=== PATIENT | female | born 1970 | race Caucasian/White ===

== ENCOUNTER → 2020-02-23 12:29 | Outpatient (BNVA) | payer OTHER, SELFPAY | PROVIDERS: Visit Provider Internal Medicine Cardiovascular Disease | DX: I10 Essential (primary) hypertension (principal) | CPT/HCPCS: 93005 ==

== ENCOUNTER 2020-03-23 13:13 | Outpatient (REF) | payer OTHER, SELFPAY ==
--- NOTE | ~2020-03-23 | MM_ITS ---
EXAMINATION: MM DIAGNOSTIC DIGITAL BREAST TOMOSYNTHESIS, BILATERAL TARGETED RIGHT BREAST ULTRASOUND CLINICAL INFORMATION: Right breast nipple discharge. The lifetime risk of breast cancer based on the Tyrer-Cuzick Model is 8.6%. COMPARISON: Mammography: 10/07/2018 and studies dating back to 05/08/2011. TECHNIQUE: Digital breast tomosynthesis is performed in both the craniocaudal and mediolateral oblique views along with computer-aided detection (CAD). Synthesized 2D images are generated from the tomosynthesis. Left craniocaudal spot compression view also performed. Targeted right breast ultrasound. FINDINGS: There are scattered areas of fibroglandular density (ACR BI-RADS breast composition Category b). There are a few stable intramammary lymph nodes seen about the lateral aspect of the left breast. There is question of a retroareolar density about the left breast for which spot compression view demonstrated to represent superimposition of fibroglandular tissue. There is a small stable region of parenchymal distortion deep lateral aspect of the right breast. No new suspicious dominant mass or grouping of microcalcifications is appreciated. Targeted ultrasound evaluation retroareolar region of the right breast did not demonstrate any abnormal cystic or solid masses. No dilated Doppler filling defects were appreciated. No suspicious regions of distal sound shadowing seen. Results are discussed with the patient at time of visit. MM/MM tomosynthesis diagnostic BI IMPRESSION: No specific mammographic or ultrasound findings to suggest malignancy. Clinical followup suggested. ASSESSMENT: BI-RADS 1: Negative RECOMMENDATION: Routine annual mammography screening due in 12 months. Clinical followup. This patient's information was entered into a reminder system with a target due date for their next mammogram.
--- NOTE | ~2020-03-23 | US_ITS ---
EXAMINATION: US DIAGNOSTIC ULTRASOUND BREAST, RIGHT CLINICAL INFORMATION: Right nipple discharge. COMPARISON: Mammography of same day as well as studies dating back to April 18, 2010. TECHNIQUE: Ultrasound of the breast is performed with real-time peres scale imaging and color Doppler. FINDINGS: There is no focal suspicious finding. There is no solid mass, architectural abnormality, duct ectasia, or edema in the soft tissue planes. Results are discussed with the patient at time of visit. US/US breast RT limited IMPRESSION: No specific ultrasound abnormality to suggest malignancy retroareolar region of the right breast. ASSESSMENT: BI-RADS 1: Negative RECOMMENDATION: Routine annual mammography screening due in 12 months. This patient's information was entered into a reminder system with a target due date for their next mammogram.
== END 2020-03-23 13:14 | disposition home or self-care (01) ==
LOC: HO.MAMMO 13:13
PROVIDERS: PCP Internal Medicine; Visit Provider Internal Medicine
DX: N64.52 Nipple discharge (principal)
CPT/HCPCS: 76642; 77062; 77066

== ENCOUNTER → 2020-09-06 10:58 | Outpatient (BNVA) | payer OTHER, SELFPAY | PROVIDERS: PCP Internal Medicine; Referring Provider Internal Medicine; Visit Provider Internal Medicine Cardiovascular Disease | DX: R94.31 Abnormal electrocardiogram [ECG] [EKG] (principal); I10 Essential (primary) hypertension | CPT/HCPCS: 93005 ==

== ENCOUNTER 2021-01-09 07:26 | Outpatient (REF) | payer OTHER, MEDICAID, SELFPAY ==
[2021-01-09 07:35] LABS: MANUAL DIFF FLAG NO
[2021-01-09 07:58] LABS: Basophils Percent Auto 0.5 % (0-2); Eosinophils Absolute Auto 0.2 X10*3/uL (0.0-0.4); Eosinophils Percent Auto 2.9 % (0-4); Hematocrit 41.6 % (37.0-47.0); Hemoglobin 13.1 g/dl (12.0-16.0); Imm Gran Abs Auto 0.01 X10*3/uL (0.00-0.03); Imm Gran Pct Auto 0.2 % (0.0-0.4); Lymphocytes Absolute Auto 2.7 X10*3/uL (1.2-4.9); Mean Corpuscular HGB Conc 31.5 g/dl (31.0-35.0); Mean Corpuscular Hemoglobin 28.7 pg (27.0-33.0); Mean Platelet Volume 10.1 fL (9.4-12.3); Monocytes Absolute Auto 0.6 X10*3/uL (0.1-1.2); Neutrophils Absolute Auto 2.2 x10*3/uL (2.0-8.3); Neutrophils Percent Auto 38.4 % (45-73); Platelet Count 266 X10*3/uL (160-400); Red Blood Count 4.57 X10*6/uL (4.20-5.50); Red Cell Distribution Width 13.2 % (11.0-16.0); White Blood Count 5.6 X10*3/uL (4.8-10.8)
[2021-01-09 08:53] LABS: Alanine Aminotransferase 18 U/L (0-31); Albumin Level 4.3 g/dL (3.5-5.0); Alkaline Phosphatase 66 U/L (39-117); Anion Gap 11 (12-20); Aspartate Amino Transferase 13 U/L (5-31); Bilirubin Total 0.7 mg/dL (0.0-1.0); Blood Urea Nitrogen 16 mg/dL (9-16); Calcium 9.8 mg/dL (8.4-10.2); Carbon Dioxide 30 mmol/L (22-29); Chloride 105 mmol/L (96-108); Cholesterol 227 mg/dL; Estimated Glomerular Filt Rate > 60; Glucose Fasting 105 mg/dL (60-99); HDL Cholesterol 45 mg/dL; LDL Cholesterol Calculated 160 mg/dl; Potassium 3.6 mmol/L (3.3-5.1); Sodium 142 mmol/L (135-145); Total Protein 7.1 g/dL (6.5-8.0); Triglycerides 110 mg/dL
== END 2021-01-09 07:27 | disposition home or self-care (01) ==
LOC: HO.LAB 07:26
PROVIDERS: PCP Internal Medicine; Visit Provider Internal Medicine
DX: Z00.00 Encounter for general adult medical examination without abnormal findings (principal)
CPT/HCPCS: 36415; 80053; 80061; 84443; 85025

== ENCOUNTER → 2021-03-07 13:20 | Outpatient (BNVA) | payer OTHER, SELFPAY | PROVIDERS: PCP Internal Medicine; Referring Provider Internal Medicine; Visit Provider Internal Medicine Cardiovascular Disease | DX: I10 Essential (primary) hypertension (principal) | CPT/HCPCS: 99212 ==

== ENCOUNTER 2021-03-19 07:51 | Outpatient (REF) | payer OTHER, SELFPAY ==
[2021-03-19 09:10] LABS: Cholesterol 222 mg/dL; HDL Cholesterol 42 mg/dL; LDL Cholesterol Calculated 159 mg/dl; Triglycerides 108 mg/dL
== END 2021-03-19 07:52 | disposition home or self-care (01) ==
LOC: HO.LAB 07:51
PROVIDERS: PCP Internal Medicine; Visit Provider Internal Medicine Cardiovascular Disease
DX: I10 Essential (primary) hypertension (principal)
CPT/HCPCS: 36415; 80061

== ENCOUNTER 2021-03-27 11:04 | Outpatient (REF) | payer OTHER, SELFPAY ==
--- NOTE | ~2021-03-27 | MM_ITS ---
EXAMINATION: MM SCREENING DIGITAL BREAST TOMOSYNTHESIS, BILATERAL CLINICAL INFORMATION: Screening. Asymptomatic. The lifetime risk of breast cancer based on the Tyrer-Cuzick Model is 8%. COMPARISON: Mammography: 03/23/2020, 10/07/2018, 09/30/2017, 09/18/2016, 07/21/2015 TECHNIQUE: Digital breast tomosynthesis is performed in both the craniocaudal and mediolateral oblique views along with computer-aided detection (CAD). Synthesized 2D images are generated from the tomosynthesis. FINDINGS: There are scattered areas of fibroglandular density (ACR BI-RADS breast composition Category b). There are no significant masses, abnormal calcifications, or other abnormalities. Parenchymal pattern is similar to prior studies. Scattered bilateral asymmetries are stable. No developing density or interval architectural changes. No significant change from prior exams. MM/MM tomosynthesis screening BI IMPRESSION: No mammographic evidence of malignancy. ASSESSMENT: BI-RADS 2: Benign RECOMMENDATION: Routine annual mammography screening. This patient's information was entered into a reminder system with a target due date for their next mammogram.
== END 2021-03-27 11:05 | disposition home or self-care (01) ==
LOC: HO.MAMMO 11:04
PROVIDERS: PCP Internal Medicine; Visit Provider Internal Medicine
DX: Z12.31 Encounter for screening mammogram for malignant neoplasm of breast (principal)
CPT/HCPCS: 77063; 77067

== ENCOUNTER 2021-06-12 13:09 | Outpatient (REF) | payer OTHER, SELFPAY ==
[2021-06-12 14:26] LABS: Hematocrit 37.2 % (37.0-47.0); Hemoglobin 11.9 g/dl (12.0-16.0); Mean Corpuscular Hemoglobin 28.7 pg (27.0-33.0); Mean Corpuscular Volume 89.9 fL (80.0-98.0); Mean Platelet Volume 10.4 fL (9.4-12.3); Platelet Count 304 X10*3/uL (160-400); Red Blood Count 4.14 X10*6/uL (4.20-5.50); Red Cell Distribution Width 13.2 % (11.0-16.0); White Blood Count 5.4 X10*3/uL (4.8-10.8)
[2021-06-12 14:41] LABS: Iron 35 mcg/dL (30-160); Percent Iron Saturation 8 % (15-50); Total Iron Binding Capacity 440 mcg/dL (228-428); Unsaturated Iron Binding 405 ug/dL
== END 2021-06-12 13:10 | disposition home or self-care (01) ==
LOC: HO.LAB 13:09
PROVIDERS: Absent Provider Physician Assistant; PCP Internal Medicine; Visit Provider Nurse Practitioner Family
DX: I10 Essential (primary) hypertension (principal)
CPT/HCPCS: 36415; 83540; 85027

== ENCOUNTER → 2021-11-14 14:20 | Outpatient (BNVA) | payer OTHER, SELFPAY | PROVIDERS: PCP Internal Medicine; Referring Provider Internal Medicine; Visit Provider Internal Medicine Cardiovascular Disease | DX: I10 Essential (primary) hypertension (principal) | CPT/HCPCS: 93005; 99212 ==

== ENCOUNTER 2022-01-14 08:25 | Outpatient (REF) | payer OTHER, SELFPAY ==
[2022-01-14 08:47] LABS: MANUAL DIFF FLAG NO
[2022-01-14 09:58] LABS: Basophils Percent Auto 0.5 % (0-2); Eosinophils Absolute Auto 0.1 X10*3/uL (0.0-0.4); Eosinophils Percent Auto 2.2 % (0-4); Hematocrit 40.5 % (37.0-47.0); Hemoglobin 12.6 g/dl (12.0-16.0); Imm Gran Abs Auto 0.01 X10*3/uL (0.00-0.03); Imm Gran Pct Auto 0.2 % (0.0-0.4); Lymphocytes Absolute Auto 2.1 X10*3/uL (1.2-4.9); Lymphocytes Percent Auto 34.1 % (20-40); Mean Corpuscular HGB Conc 31.1 g/dl (31.0-35.0); Mean Corpuscular Hemoglobin 27.6 pg (27.0-33.0); Mean Corpuscular Volume 88.6 fL (80.0-98.0); Mean Platelet Volume 10.5 fL (9.4-12.3); Monocytes Absolute Auto 0.5 X10*3/uL (0.1-1.2); Neutrophils Absolute Auto 3.3 x10*3/uL (2.0-8.3); Platelet Count 276 X10*3/uL (160-400); Red Blood Count 4.57 X10*6/uL (4.20-5.50); Red Cell Distribution Width 13.2 % (11.0-16.0)
[2022-01-14 10:55] LABS: Alanine Aminotransferase 15 U/L (0-31); Albumin Level 4.1 g/dL (3.5-5.0); Alkaline Phosphatase 70 U/L (39-117); Anion Gap 11 (12-20); Aspartate Amino Transferase 12 U/L (5-31); Bilirubin Total 0.3 mg/dL (0.0-1.0); Blood Urea Nitrogen 11 mg/dL (9-16); Calcium 9.2 mg/dL (8.4-10.2); Carbon Dioxide 28 mmol/L (22-29); Chloride 106 mmol/L (96-108); Cholesterol 206 mg/dL; Estimated Glomerular Filt Rate > 60; Glucose Fasting 98 mg/dL (60-99); HDL Cholesterol 49 mg/dL; Iron 33 mcg/dL (30-160); LDL Cholesterol Calculated 142 mg/dl; Percent Iron Saturation 9 % (15-50); Potassium 3.9 mmol/L (3.3-5.1); Sodium 141 mmol/L (135-145); Thyroid Stimulating Hormone 2.71 uIU/mL (0.32-4.0); Total Iron Binding Capacity 357 mcg/dL (228-428); Total Protein 6.7 g/dL (6.5-8.0); Triglycerides 76 mg/dL; Unsaturated Iron Binding 324 ug/dL
== END 2022-01-14 08:26 | disposition home or self-care (01) ==
LOC: HO.LAB 08:25
PROVIDERS: PCP Internal Medicine; Visit Provider Internal Medicine
DX: Z13.0 Encounter for screening for diseases of the blood and blood-forming organs and certain disorders involving the immune mechanism (principal); E78.5 Hyperlipidemia, unspecified; E03.9 Hypothyroidism, unspecified; I10 Essential (primary) hypertension; E61.1 Iron deficiency
CPT/HCPCS: 36415; 80053; 80061; 83540; 84443; 85025

== ENCOUNTER 2022-03-28 13:57 | Outpatient (REF) | payer OTHER, SELFPAY ==
--- NOTE | ~2022-03-28 | MM_ITS ---
EXAMINATION: MM SCREENING DIGITAL BREAST TOMOSYNTHESIS, BILATERAL CLINICAL INFORMATION: Screening. Asymptomatic. The lifetime risk of breast cancer based on the Tyrer-Cuzick Model is 8%. COMPARISON: Mammography: 03/27/2021, 03/23/2020, 10/07/2018, 09/30/2017 TECHNIQUE: Digital breast tomosynthesis is performed in both the craniocaudal and mediolateral oblique views along with computer-aided detection (CAD). Synthesized 2D images are generated from the tomosynthesis. FINDINGS: There are scattered areas of fibroglandular density (ACR BI-RADS breast composition Category b). There are no significant masses, abnormal calcifications, or other abnormalities. There are minor parenchymal asymmetries similar to prior studies. No developing density or architectural abnormality or significant changes. The axilla and skin contours are unremarkable. MM/MM tomosynthesis screening BI IMPRESSION: No mammographic evidence of malignancy. ASSESSMENT: BI-RADS 2: Benign RECOMMENDATION: Routine annual mammography screening. This patient's information was entered into a reminder system with a target due date for their next mammogram.
== END 2022-03-28 13:58 | disposition home or self-care (01) ==
LOC: HO.MAMMO 13:57
PROVIDERS: PCP Internal Medicine; Visit Provider Internal Medicine
DX: Z12.31 Encounter for screening mammogram for malignant neoplasm of breast (principal)
CPT/HCPCS: 77063; 77067

== ENCOUNTER → 2022-04-25 14:56 | Outpatient (BNVA) | payer OTHER, SELFPAY | PROVIDERS: PCP Internal Medicine; Referring Provider Internal Medicine; Visit Provider Nurse Practitioner Family | DX: R94.31 Abnormal electrocardiogram [ECG] [EKG] (principal); I10 Essential (primary) hypertension | CPT/HCPCS: 93005; 99212 ==

== ENCOUNTER 2022-06-12 10:28 | Outpatient (REF) | payer OTHER, SELFPAY ==
[2022-06-12 10:47] LABS: MANUAL DIFF FLAG NO
[2022-06-12 10:58] LABS: Basophils Percent Auto 0.7 % (0-2); Eosinophils Absolute Auto 0.1 X10*3/uL (0.0-0.4); Eosinophils Percent Auto 2.3 % (0-4); Hemoglobin 8.7 g/dl (12.0-16.0); Imm Gran Abs Auto 0.03 X10*3/uL (0.00-0.03); Imm Gran Pct Auto 0.5 % (0.0-0.4); Lymphocytes Absolute Auto 2.3 X10*3/uL (1.2-4.9); Lymphocytes Percent Auto 37.3 % (20-40); Mean Corpuscular HGB Conc 31.1 g/dl (31.0-35.0); Mean Corpuscular Hemoglobin 28.2 pg (27.0-33.0); Mean Corpuscular Volume 90.6 fL (80.0-98.0); Monocytes Absolute Auto 0.5 X10*3/uL (0.1-1.2); Neutrophils Absolute Auto 3.1 x10*3/uL (2.0-8.3); Neutrophils Percent Auto 51.2 % (45-73); Platelet Count 318 X10*3/uL (160-400); Red Blood Count 3.09 X10*6/uL (4.20-5.50); Red Cell Distribution Width 15.3 % (11.0-16.0); White Blood Count 6.1 X10*3/uL (4.8-10.8)
[2022-06-12 11:58] LABS: Alanine Aminotransferase 18 U/L (0-31); Albumin Level 3.9 g/dL (3.5-5.0); Alkaline Phosphatase 63 U/L (39-117); Anion Gap 12 (12-20); Aspartate Amino Transferase 13 U/L (5-31); Bilirubin Total 0.5 mg/dL (0.0-1.0); Blood Urea Nitrogen 15 mg/dL (9-16); Calcium 9.1 mg/dL (8.4-10.2); Carbon Dioxide 24 mmol/L (22-29); Chloride 108 mmol/L (96-108); Cholesterol 209 mg/dL; Estimated Glomerular Filt Rate > 60; Glucose Fasting 99 mg/dL (60-99); HDL Cholesterol 46 mg/dL; LDL Cholesterol Calculated 146 mg/dl; Potassium 4.1 mmol/L (3.3-5.1); Sodium 140 mmol/L (135-145); Total Protein 6.2 g/dL (6.5-8.0); Triglycerides 89 mg/dL
[2022-06-12 12:24] LABS: Ferritin 10 ng/mL (10-250)
== END 2022-06-12 10:29 | disposition home or self-care (01) ==
LOC: HO.LAB 10:28
PROVIDERS: PCP Internal Medicine; Visit Provider Internal Medicine
DX: D64.9 Anemia, unspecified (principal); E78.5 Hyperlipidemia, unspecified; N28.9 Disorder of kidney and ureter, unspecified
CPT/HCPCS: 36415; 80053; 80061; 82728; 85025

== ENCOUNTER 2022-06-13 14:00 | Outpatient (REF) | payer OTHER, SELFPAY ==
[2022-06-13 15:38] LABS: Iron 289 mcg/dL (30-160); Percent Iron Saturation 66 % (15-50); Total Iron Binding Capacity 441 mcg/dL (228-428); Unsaturated Iron Binding 152 ug/dL
== END 2022-06-13 14:01 | disposition home or self-care (01) ==
LOC: HO.LAB 14:00
PROVIDERS: PCP Internal Medicine; Visit Provider Internal Medicine
DX: E61.1 Iron deficiency (principal)
CPT/HCPCS: 36415; 83540

== ENCOUNTER 2022-06-17 15:55 | Outpatient (REF) | payer OTHER, SELFPAY ==
[2022-06-17 19:04] LABS: Folate 16.7 ng/mL (> or = 4.0); Vitamin B12 465 pg/mL (200-900)
== END 2022-06-17 15:56 | disposition home or self-care (01) ==
LOC: HO.LAB 15:55
PROVIDERS: PCP Internal Medicine; Visit Provider Internal Medicine
DX: D64.9 Anemia, unspecified (principal)
CPT/HCPCS: 36415; 82607; 82746

== ENCOUNTER 2022-10-21 11:20 | Outpatient (AMB) | payer OTHER, SELFPAY ==
--- NOTE | 2022-10-21 11:33 | A.OFFVIS_ITS ---
Intake Vital Signs 10/21/22 11:34 Height 5 ft 2 in Weight 140 lb 10.479 oz BMI 25.7 BP 126/74 Blood Pressure Location Lt brachial Position Sitting Pulse 94 Pulse Source Pulse Oximeter Intake Visit Reasons: 6 mth f/up Intake Note: 6 month follow up. 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 She has anterolateral T-wave inversions on EKG which have been persistent without any dynamic changes. Blood pressure in the office previously was high. I started on hydrochlorothiazide and did an echocardiogram. With anterolateral T-wave inversions, I sent her for an echocardiogram which was completely normal. With hydrochlorothiazide her blood pressure has improved significantly. She is denying any symptoms including no chest discomfort shortness of breath. Taking medications regularly. She returns for follow-up today. She was tested positive for COVID-19 along with her mother. She had dizziness and noticed her blood pressure to be low 100 at that stage card office. We advised her to stop the hydrochlorothiazide. Off thiazide diuretics her blood pressure has been running in 120s to 130s. She is saying that when she wakes up her blood pressure is low at 110 and her sister told her to take excess salt in her diet and she has been eating saltine. No chest pain or shortness of breath and overall doing well. 10/21/22: She returns for follow-up. Hiro alexander was diagnosed with iron deficiency anemia due to menorrhagia. She is perimenopausal at this stage. She said she was due to get iron infusions but by increasing iron and diet she was able to i mprove her iron levels and hemoglobin. She is currently just taking ferrous sulfate orally. She says she was quite fatigued when she was anemic but since her hemoglobin improved she has been feeling better. [facility] Medical History HTN (hypertension) Surgical History No pertinent past surgical history Family History Father Renal failure CVD (cardiovascular disease) Mother Alzheimers disease Social History Housing: House Alcohol intake: never Patient Tobacco Use Status: Never used Tobacco e-Cigarette/Vaping Use: Never Used Second Hand Smoke Exposure: No service: No Current occupational status: unemployed Cognitive needs: No Hearing needs: No Vision needs: No Review of Systems Const Denies weakness ENT Denies dizziness Card Denies chest pain, Denies chest pain with activity, Denies syncope, Denies rapid heart rate, Denies pedal edema, Denies edema, Denies leg edema, Denies lightheadedness, Denies palpitations, Denies dyspnea, Denies dyspnea on exertion and Denies orthopnea Resp Denies cough, Denies dyspnea and Denies dyspnea on exertion GI Denies hematochezia and Denies change in stool character Musc Denies abnormal gait, Denies muscle cramps, Denies muscle weakness, Denies numbness, Denies radiating pain into limb and Denies tingling Neuro Denies abnormal gait, Denies dizziness, Denies syncope, Denies numbness, Denies tingling and Denies weakness Endo Denies palpitations Physical Exam Vital Signs: Last Vital Signs Pulse 94 10/21/22 11:34 BP 126/74 10/21/22 11:34 BMI result Body Mass Index 25.7 GENERAL APPEARANCE: in no acute distress, well developed, well nourished. NECK/THYROID: no carotid bruit, no jugular venous distention. SKIN: no suspicious lesions, warm and dry. HEART: no murmurs, regular rate and rhythm, S1, S2 normal. LUNGS: clear to auscultation bilaterally. ABDOMEN: normal, bowel sounds present, soft, nontender, nondistended. EXTREMITIES: no clubbing, cyanosis, or edema. PERIPHERAL PULSES: equal. NEUROLOGIC: nonfocal, alert and oriented. PSYCH: mood/affect full range. Assessment & Plan Assessment & Plan (1) HTN (hypertension): Code(s): I10 - Essential (primary) hypertension (2) Abnormal ECG: Code(s): R94.31 - Abnormal electrocardiogram [ECG] [EKG] Plan [age] year female who is here for follow-up. She is currently of medications and blood pressure appears to be normal. This should be closely monitored and if her readings are above 130/80 she should be restarted on antihypertensive therapy. She had symptoms due to anemia due to menorrhagia. With iron supplements she has improved her hemoglobin and at this stage is doing well. She will be followed by Hematology closely. She will see us back in 1 year. Thank you for allowing me to participate in the care of your patient. Please feel free to contact me if you have any questions. Coding Level of Care Code Est Pt Level 3 (93166) Diagnoses HTN (hypertension) I10 Abnormal ECG R94.31
[2022-10-21 11:34] VITALS: BP 126/74; PULSE 94; BMI 25.7
== END 2022-10-21 11:56 | disposition home or self-care (01) ==
PROVIDERS: PCP Internal Medicine; Referring Provider Internal Medicine; Visit Provider Internal Medicine Cardiovascular Disease
DX: I10 Essential (primary) hypertension (principal); R94.31 Abnormal electrocardiogram [ECG] [EKG]
CPT/HCPCS: 99213

== ENCOUNTER → 2022-10-21 11:20 | Outpatient (BNVA) | payer OTHER, SELFPAY | PROVIDERS: PCP Internal Medicine; Referring Provider Internal Medicine; Visit Provider Internal Medicine Cardiovascular Disease | DX: I10 Essential (primary) hypertension (principal); R94.31 Abnormal electrocardiogram [ECG] [EKG] | CPT/HCPCS: 99212 ==

== ENCOUNTER 2023-01-14 12:45 | Outpatient (AMB) | payer OTHER, SELFPAY ==
[2023-01-14 12:48] VITALS: BP 138/98; PULSE 95; O2SAT 98; BMI 26.3
--- NOTE | 2023-01-14 12:48 | MHC.PC.OV ---
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 Required per policy Accompanied by: Self / Same As Patient Allergies No Known Allergies Allergy (Verified 01/14/23 12:48) Medication List - Last Reconciled 01/14/23 by Efraín Matthews MD cholecalciferol (vitamin D3) 25 mcg PO DAILY ferrous sulfate 325 mg PO DAILY Tobacco use date assessed: 01/14/23 Dental Screening Dental Screen Date: 01/14/23 Did you have a dental visit in the last 12 months?: Yes Did you have a dental problem in the last 6 months where you did not have access to dental care?: No Was dental information given to patient?: Patient has dentist HPI Annual Exam/ needs PHQ9+ THRIVE HPI Details iron def anemia; declines colon cancer screening [facility] Medical History HTN (hypertension) Surgical History No pertinent past surgical history Family History Father Renal failure CVD (cardiovascular disease) Mother Alzheimers disease Social History Housing: House Alcohol intake: never Patient Tobacco Use Status: Never used Tobacco e-Cigarette/Vaping Use: Never Used Second Hand Smoke Exposure: No service: No Current occupational status: unemployed Cognitive needs: No Hearing needs: No Vision needs: No Questionnaire PHQ-9 Over the last 2 weeks, how often have you been bothered by any of the following problems? 1. Little interest or pleasure in doing things: not at all 2. Feeling down, depressed, or hopeless: not at all 3. Trouble falling or staying asleep, or sleeping too much: not at all 4. Feeling tired or having little energy: not at all 5. Poor appetite or overeating: not at all 6. Feeling bad about yourself - or that you are a failure or have let yourself or your family down: not at all 7. Trouble concentrating on things, such as reading the newspaper or watching television: not at all 8. Moving or speaking so slowly that other people could have noticed. Or the opposite - being so fidgety or restless that you have been moving around a lot more than usual: not at all 9. Thoughts that you would be better off or of hurting yourself in some way: not at all Total score: 0 Depression Screening Interpretation: Negative Depression Screening Done: Yes 89738 - PHQ-9 Billing: Yes Source: Developed by Drs. Florian Ocampo, Selina Regalado, Angel Crabtree and colleagues, with an educational riley from [employer]. Thrive Questionnaire Date Thrive assessed: 01/14/23 I am a: Patient What is your living situation today?: I have a steady place to live Within the past 12 months, did the food you bought not last and you didn't have the money to get more?: Never true Within the past 12 months, did you worry whether your food would run out before you got money to buy more?: Never true Do you have trouble paying for medicines?: No Do you have trouble getting transportation to medical appointments?: No Do you have trouble paying your heating and electricity bill?: No Do you have trouble taking care of your child, family member or friend?: No Do you have trouble with day-to-day activities such as bathing, preparing meals, shopping, managing finances, etc.?: No Are you currently unemployed and looking for a job?: No Are you interested in more education?: No Please select the resources that you would like help with: None AUDIT C Alcohol Use Questionnaire (AUDIT-C) 1. How often do you have a drink containing alcohol?: Never Total Score: 0 CLINT-7 AMB Questionnaire CLINT-7 Date CLINT - 7 assessed: 01/14/23 Feeling nervous, anxious, or on edge: 0 = Not at all Not being able to stop or control worryin = Not at all Worrying too much about different things: 0 = Not at all Trouble relaxin = Not at all Being so restless that it is hard to sit still: 0 = Not at all Becoming easily annoyed or irritable: 0 = Not at all Feeling afraid as if something awful might happen: 0 = Not at all Total CLINT-7 score (0-4 normal; 5-9 mild; 10-14 moderate; 15-21 severe): 0 Source: Developed by Drs. Florian Ocampo, Selina Regalado, Angel Crabtree and colleagues, with an educational riley from [employer]. CLINT-7 Assessment Billing CLINT-7 Assessment Tool: CLINT-7 Assessment 21438 Review of Systems Const Denies chills, Denies fatigue, Denies headache(s) and Denies weight loss Eyes Denies change in vision, Denies diplopia and Denies eye pain ENT Denies vertigo, Denies dizziness, Denies headache(s) and Denies nasal discharge Card Denies chest pain, Denies rapid heart rate and Denies dyspnea on exertion Resp Denies chest congestion, Denies cough, Denies pain with cough and Denies dyspnea on exertion GI Denies abdominal pain, Denies hematochezia and Denies change in bowel habits Musc Denies myalgias, Denies arthralgias and Denies joint swelling Skin/Breast Denies lesions and Denies unusual bruising Neuro Denies vertigo, Denies dizziness, Denies headache(s) and Denies focal weakness Endo Denies fatigue Physical exam (Primary Care) Vital Signs: Last Vital Signs Pulse 95 01/14/23 12:48 BP 138/98 H 01/14/23 12:48 Pulse Ox 98 01/14/23 12:48 Oxygen Delivery Method Room Air 01/14/23 12:48 BMI result Body Mass Index 26.3 Tobacco/Smoking Status: Tobacco use Status Tobacco use date assessed 01/14/23 01/14/23 12:49 Patient Tobacco Use Status Never used Tobacco 01/14/23 12:49 e-Cigarette/Vaping Use Never Used 01/14/23 12:49 PHQ-9: PHQ-9 Score PHQ-9: Total score 0 01/14/23 12:49 Depression Screening Interpretation: Negative Thrive Assessment: Date of Thrive Assessment Date Thrive assessed 01/14/23 01/14/23 12:49 Const General: cooperative, healthy appearing and no acute distress Orientation/consciousness: oriented to person, oriented to place and oriented to time HENMT Head: Yes normal to inspection, Yes normocephalic and Yes atraumatic Mouth: Normal oral and palatal mucosa present and tongue normal Throat: Yes posterior oropharynx normal and Yes uvula midline Eyes General: appearance normal, both eyes and all related structures Neck Neck: Yes normal visual inspection, Yes full ROM and Yes no lymphadenopathy Thyroid: Thyroid normal Carotids: normal carotid upstroke Chest Chest palpation & inspection: normal inspection of the chest Resp Effort & Inspection: normal respiratory effort and able to speak in complete sentences Auscultation: clear to auscultation bilaterally Cardio Jugular venous distension: no JVD Palpation: normal PMI Rate: regular rate Rhythm: regular rhythm Heart sounds: S1 normal heart sound present and S2 normal heart sound present GI Inspection: Yes normal to inspection Palpation (GI): Soft to palpation and No hepatosplenomegaly present Auscultation: normal bowel sounds General: Yes no CVA tenderness Back/Spine/Pelvis Back: no CVA tenderness Skin General skin exam: no rashes or lesions noted Neuro General: oriented to person, oriented to place and oriented to time Extrem General: Yes normal to inspection and Yes full ROM Assessment and Plan Assessment & Plan (1) Physical exam: Code(s): Z00.00 - Encounter for general adult medical examination without abnormal findings Plan: do labs (2) Iron deficiency: Code(s): E61.1 - Iron deficiency Plan: check labs Orders: Orders Lipid Panel Today E78.5 - Hyperlipidemia, unspecified Thyroid Stimulating Hormone Today E03.9 - Hypothyroidism, unspecified Complete Blood Count Auto Diff Today D64.9 - Anemia, unspecified Comprehensive [place]. Panel Fast Today N28.9 - Disorder of kidney and ureter, unspecified IRON PROFILE Today E61.1 - Iron deficiency Coding Level of Care Code Est Pt Prev Care 40-64y(70090) Diagnoses Physical exam Z00.00 Iron deficiency E61.1 Additional Codes CLINT-7 Assessment Billing - CLINT-7 Assessment Tool: CLINT-7 Assessment 10540 ([id number])
== END 2023-01-14 13:17 | disposition home or self-care (01) ==
PROVIDERS: Visit Provider Internal Medicine
DX: Z00.00 Encounter for general adult medical examination without abnormal findings (principal); E61.1 Iron deficiency
CPT/HCPCS: 99396

== ENCOUNTER 2023-01-15 08:32 | Outpatient (REF) | payer OTHER, SELFPAY ==
[2023-01-15 08:56] LABS: MANUAL DIFF FLAG NO
[2023-01-15 09:51] LABS: Basophils Percent Auto 0.3 % (0-2); Eosinophils Absolute Auto 0.1 X10*3/uL (0.0-0.4); Eosinophils Percent Auto 1.1 % (0-4); Hematocrit 44.1 % (37.0-47.0); Imm Gran Abs Auto 0.05 X10*3/uL (0.00-0.03); Imm Gran Pct Auto 0.5 % (0.0-0.4); Lymphocytes Percent Auto 19.3 % (20-40); Mean Corpuscular HGB Conc 31.7 g/dl (31.0-35.0); Mean Corpuscular Hemoglobin 27.9 pg (27.0-33.0); Mean Corpuscular Volume 87.8 fL (80.0-98.0); Mean Platelet Volume 10.3 fL (9.4-12.3); Monocytes Absolute Auto 0.7 X10*3/uL (0.1-1.2); Monocytes Percent Auto 6.4 % (2-11); Neutrophils Absolute Auto 7.5 x10*3/uL (2.0-8.3); Neutrophils Percent Auto 72.4 % (45-73); Platelet Count 303 X10*3/uL (160-400); Red Blood Count 5.02 X10*6/uL (4.20-5.50); Red Cell Distribution Width 13.3 % (11.0-16.0); White Blood Count 10.4 X10*3/uL (4.8-10.8)
[2023-01-15 10:41] LABS: Alanine Aminotransferase 26 U/L (0-31); Albumin Level 4.4 g/dL (3.5-5.0); Alkaline Phosphatase 97 U/L (39-117); Anion Gap 13 (12-20); Aspartate Amino Transferase 16 U/L (5-31); Bilirubin Total 0.4 mg/dL (0.0-1.0); Blood Urea Nitrogen 11 mg/dL (9-16); Carbon Dioxide 28 mmol/L (22-29); Chloride 106 mmol/L (96-108); Cholesterol 234 mg/dL (<200); Estimated Glomerular Filt Rate > 60; Glucose Fasting 109 mg/dL (60-99); HDL Cholesterol 47 mg/dL (>40); Iron 48 mcg/dL (30-160); LDL Cholesterol Calculated 158 mg/dL (<100); Percent Iron Saturation 13 % (15-50); Potassium 3.7 mmol/L (3.3-5.1); Sodium 143 mmol/L (135-145); Total Iron Binding Capacity 358 mcg/dL (228-428); Total Protein 7.7 g/dL (6.5-8.0); Triglycerides 147 mg/dL (<150); Unsaturated Iron Binding 310 ug/dL
[2023-01-15 10:58] LABS: Thyroid Stimulating Hormone 2.33 uIU/mL (0.32-4.0)
== END 2023-01-15 08:33 | disposition home or self-care (01) ==
LOC: HO.LAB 08:32
PROVIDERS: PCP Internal Medicine; Visit Provider Internal Medicine
DX: E78.5 Hyperlipidemia, unspecified (principal); E03.9 Hypothyroidism, unspecified; D64.9 Anemia, unspecified; E61.1 Iron deficiency; N28.9 Disorder of kidney and ureter, unspecified
CPT/HCPCS: 36415; 80053; 80061; 83540; 84443; 85025

== ENCOUNTER 2023-04-03 09:59 | Outpatient (REF) | payer OTHER, SELFPAY | END 2023-04-03 10:00 | disposition home or self-care (01) | LOC: HO.MAMMO 09:59 | PROVIDERS: PCP Internal Medicine; Visit Provider Internal Medicine | DX: Z12.31 Encounter for screening mammogram for malignant neoplasm of breast (principal) | CPT/HCPCS: 77063; 77067 ==

== ENCOUNTER → 2023-04-03 10:15 | Outpatient (BNV) | payer OTHER, SELFPAY | PROVIDERS: PCP Internal Medicine; Visit Provider Radiology Diagnostic Radiology | DX: Z12.31 Encounter for screening mammogram for malignant neoplasm of breast (principal) | CPT/HCPCS: 77063; 77067 ==

== ENCOUNTER 2023-04-25 13:26 | Outpatient (AMB) | payer OTHER, SELFPAY ==
[2023-04-25 13:31] VITALS: BP 160/90; PULSE 92; O2SAT 98; BMI 26.3
--- NOTE | 2023-04-25 13:31 | MHC.PC.OV ---
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 Required: No Supervisor Cell Efficiency: Not Required per policy Accompanied by: Self / Same As Patient Allergies No Known Allergies Allergy (Verified 04/25/23 13:32) Tobacco use date assessed: 04/25/23 Dental Screening Dental Screen Date: 04/25/23 Did you have a dental visit in the last 12 months?: Yes Did you have a dental problem in the last 6 months where you did not have access to dental care?: No Was dental information given to patient?: Patient has dentist HPI Itchy Rash/Hive on arms/back of leg/breast HPI Details rash on arms consistent with urticaria PFSH Medical History HTN (hypertension) Surgical History No pertinent past surgical history Family History (Updated 04/25/23 @ 13:32 by HENRRY Green) Father Renal failure CVD (cardiovascular disease) Mother Alzheimers disease Social History Housing: House Alcohol intake: never Patient Tobacco Use Status: Never used Tobacco e-Cigarette/Vaping Use: Never Used Second Hand Smoke Exposure: No service: No Current occupational status: unemployed Cognitive needs: No Hearing needs: No Vision needs: No Questionnaire PHQ-9 Over the last 2 weeks, how often have you been bothered by any of the following problems? 1. Little interest or pleasure in doing things: not at all 2. Feeling down, depressed, or hopeless: not at all 3. Trouble falling or staying asleep, or sleeping too much: not at all 4. Feeling tired or having little energy: not at all 5. Poor appetite or overeating: not at all 6. Feeling bad about yourself - or that you are a failure or have let yourself or your family down: not at all 7. Trouble concentrating on things, such as reading the newspaper or watching television: not at all 8. Moving or speaking so slowly that other people could have noticed. Or the opposite - being so fidgety or restless that you have been moving around a lot more than usual: not at all 9. Thoughts that you would be better off or of hurting yourself in some way: not at all Total score: 0 Depression Screening Interpretation: Negative Depression Screening Done: Yes 24013 - PHQ-9 Billing: Yes Source: Developed by Drs. Florian Ocampo, Selina Regalado, Angel Crabtree and colleagues, with an educational riley from [employer]. Thrive Questionnaire Date Thrive assessed: 04/25/23 I am a: Patient What is your living situation today?: I have a steady place to live Within the past 12 months, did the food you bought not last and you didn't have the money to get more?: Never true Within the past 12 months, did you worry whether your food would run out before you got money to buy more?: Never true Do you have trouble paying for medicines?: No Do you have trouble getting transportation to medical appointments?: No Do you have trouble paying your heating and electricity bill?: No Do you have trouble taking care of your child, family member or friend?: No Do you have trouble with day-to-day activities such as bathing, preparing meals, shopping, managing finances, etc.?: No Are you currently unemployed and looking for a job?: No Are you interested in more education?: No Please select the resources that you would like help with: None Currently or been in a relationship where the following occur: no concerns reported THRIVE Score: 0 AUDIT C Alcohol Use Questionnaire (AUDIT-C) 1. How often do you have a drink containing alcohol?: Never Total Score: 0 CLINT-7 AMB Questionnaire CLINT-7 Date CLINT - 7 assessed: 04/25/23 Feeling nervous, anxious, or on edge: 0 = Not at all Not being able to stop or control worryin = Not at all Worrying too much about different things: 0 = Not at all Trouble relaxin = Not at all Being so restless that it is hard to sit still: 0 = Not at all Becoming easily annoyed or irritable: 0 = Not at all Feeling afraid as if something awful might happen: 0 = Not at all Total CLINT-7 score (0-4 normal; 5-9 mild; 10-14 moderate; 15-21 severe): 0 Source: Developed by Drs. Florian Ocampo, Selina Regalado, Angel Crabtree and colleagues, with an educational riley from [employer]. Review of Systems Const Denies chills, Denies headache(s) and Denies weight loss ENT Denies headache(s) Card Denies chest pain, Denies syncope, Denies irregular heart rhythm and Denies dyspnea Resp Denies chest congestion, Denies cough and Denies dyspnea GI Denies abdominal pain, Denies change in stool character, Denies nausea and Denies vomiting Musc Denies deformity and Denies joint swelling Neuro Denies syncope and Denies headache(s) Physical exam (Primary Care) Vital Signs: Last Vital Signs Pulse 92 04/25/23 13:31 BP 160/90 H 04/25/23 13:31 Pulse Ox 98 04/25/23 13:31 Oxygen Delivery Method Room Air 04/25/23 13:31 BMI result Body Mass Index 26.3 Tobacco/Smoking Status: Tobacco use Status Tobacco use date assessed 04/25/23 04/25/23 13:32 Patient Tobacco Use Status Never used Tobacco 04/25/23 13:31 e-Cigarette/Vaping Use Never Used 04/25/23 13:31 PHQ-9: PHQ-9 Score PHQ-9: Total score 0 04/25/23 13:39 Depression Screening Interpretation: Negative Thrive Assessment: Date of Thrive Assessment Date Thrive assessed 04/25/23 04/25/23 13:32 Currently or been in a relationship where the following occur: no concerns reported Const General: cooperative, comfortable, no acute distress and alert Neck Neck: Yes no lymphadenopathy Thyroid: Thyroid normal Resp Effort & Inspection: normal respiratory effort Auscultation: clear to auscultation bilaterally Percussion: percussion normal Cardio Jugular venous distension: no JVD Palpation: normal PMI Rate: regular rate Rhythm: regular rhythm Heart sounds: S1 normal heart sound present and S2 normal heart sound present GI Inspection: Yes normal to inspection Palpation (GI): No hepatosplenomegaly present Skin Other: urticaria on arm Extrem General: Yes no clubbing, cyanosis or edema Assessment and Plan Assessment & Plan (1) Urticaria: Code(s): L50.9 - Urticaria, unspecified Plan: rx sent Medications: New methylprednisolone (Medrol (Yung)) PO PER PKG DIR 21 ea 0RF Coding Level of Care Code Est Pt Level 3 (52615) Diagnoses Urticaria L50.9
== END 2023-04-25 13:47 | disposition home or self-care (01) ==
PROVIDERS: PCP Internal Medicine; Visit Provider Internal Medicine
DX: L50.9 Urticaria, unspecified (principal)
CPT/HCPCS: 99213

== ENCOUNTER 2023-04-28 10:30 | Outpatient (AMB) | payer OTHER, SELFPAY ==
[2023-04-28 10:48] VITALS: BP 180/100; PULSE 79; BMI 26.0
--- NOTE | 2023-04-28 10:48 | A.OFFPC_ITS ---
Vital Signs 04/28/23 10:48 Height 5 ft 2 in Weight 142 lb BMI 26.0 BP 180/100 H Blood Pressure Location Lt brachial Position Sitting Pulse 79 Pulse Source Pulse Oximeter Oxygen Delivery Method Room Air Intake Visit Reasons: Hive F/U Allergies No Known Allergies Allergy (Verified 04/25/23 13:32) Tobacco use date assessed: 04/25/23 HPI Hive F/U HPI Details improving but hives still pruritic PFSH Medical History HTN (hypertension) Surgical History No pertinent past surgical history Family History (Updated 04/25/23 @ 13:32 by HENRRY Green) Father Renal failure CVD (cardiovascular disease) Mother Alzheimers disease Social History Housing: House Alcohol intake: never Patient Tobacco Use Status: Never used Tobacco e-Cigarette/Vaping Use: Never Used Second Hand Smoke Exposure: No service: No Current occupational status: unemployed Cognitive needs: No Hearing needs: No Vision needs: No Questionnaire Thrive Questionnaire Date Thrive assessed: 04/25/23 CLINT-7 AMB Questionnaire CLINT-7 Date CLINT - 7 assessed: 04/25/23 Source: Developed by Drs. Florian Ocampo, Selina Regalado, Angel Crabtree and colleagues, with an educational riley from [employer] Review of Systems Const Denies chills, Denies headache(s) and Denies weight loss ENT Denies headache(s) Card Denies chest pain, Denies syncope, Denies irregular heart rhythm and Denies dyspnea Resp Denies chest congestion, Denies cough and Denies dyspnea GI Denies abdominal pain, Denies change in stool character, Denies nausea and Denies vomiting Musc Denies deformity and Denies joint swelling Neuro Denies syncope and Denies headache(s) Physical exam (Primary Care) Vital Signs: Last Vital Signs Pulse 79 04/28/23 10:48 BP 180/100 H 04/28/23 10:48 Oxygen Delivery Method Room Air 04/28/23 10:48 BMI result Body Mass Index 26.0 Tobacco/Smoking Status: Tobacco use Status Tobacco use date assessed 04/25/23 04/28/23 10:52 Patient Tobacco Use Status Never used Tobacco 04/28/23 10:52 e-Cigarette/Vaping Use Never Used 04/28/23 10:52 Thrive Assessment: Date of Thrive Assessment Date Thrive assessed 04/25/23 04/28/23 10:52 Const General: cooperative, comfortable, no acute distress and alert Neck Neck: Yes no lymphadenopathy Thyroid: Thyroid normal Resp Effort & Inspection: normal respiratory effort Auscultation: clear to auscultation bilaterally Percussion: percussion normal Cardio Jugular venous distension: no JVD Palpation: normal PMI Rate: regular rate Rhythm: regular rhythm Heart sounds: S1 normal heart sound present and S2 normal heart sound present GI Inspection: Yes normal to inspection Palpation (GI): No hepatosplenomegaly present Skin General skin exam: no rashes or lesions noted Extrem General: Yes no clubbing, cyanosis or edema Assessment and Plan Assessment & Plan (1) Urticaria: Code(s): L50.9 - Urticaria, unspecified Plan: rx sent Medications: New hydroxyzine pamoate 25 mg PO QID PRN 60 caps 3RF itching Coding Level of Care Code Est Pt Level 3 (76048) Diagnoses Urticaria L50.9
== END 2023-04-28 11:10 | disposition home or self-care (01) ==
PROVIDERS: PCP Internal Medicine; Visit Provider Internal Medicine
DX: L50.9 Urticaria, unspecified (principal)
CPT/HCPCS: 99213

== ENCOUNTER 2023-07-23 16:06 | Outpatient (REF) | payer OTHER, SELFPAY ==
[2023-07-23 16:28] LABS: Basophils Percent Auto 0.4 % (0-2); Eosinophils Percent Auto 0.3 % (0-4); Hematocrit 38.5 % (37.0-47.0); Hemoglobin 12.7 g/dl (12.0-16.0); Imm Gran Abs Auto 0.05 X10*3/uL (0.00-0.03); Imm Gran Pct Auto 0.5 % (0.0-0.4); Lymphocytes Absolute Auto 2.1 X10*3/uL (1.2-4.9); Lymphocytes Percent Auto 21.1 % (20-40); MANUAL DIFF FLAG NO; Mean Corpuscular Hemoglobin 29.4 pg (27.0-33.0); Mean Corpuscular Volume 89.1 fL (80.0-98.0); Mean Platelet Volume 9.8 fL (9.4-12.3); Monocytes Absolute Auto 0.5 X10*3/uL (0.1-1.2); Monocytes Percent Auto 4.7 % (2-11); Neutrophils Absolute Auto 7.1 x10*3/uL (2.0-8.3); Platelet Count 327 X10*3/uL (160-400); Red Blood Count 4.32 X10*6/uL (4.20-5.50); Red Cell Distribution Width 13.4 % (11.0-16.0); White Blood Count 9.8 X10*3/uL (4.8-10.8)
== END 2023-07-23 16:07 | disposition home or self-care (01) ==
LOC: HO.LAB 16:06
PROVIDERS: PCP Internal Medicine; Visit Provider Internal Medicine
DX: Z13.0 Encounter for screening for diseases of the blood and blood-forming organs and certain disorders involving the immune mechanism (principal)
CPT/HCPCS: 36415; 85025

== ENCOUNTER 2023-11-26 10:37 | Outpatient (AMB) | payer OTHER, SELFPAY ==
[2023-11-26 11:07] VITALS: BP 140/80; PULSE 83; BMI 25.9
--- NOTE | 2023-11-26 11:07 | MHC.OFFVIS ---
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 She has anterolateral T-wave inversions on EKG which have been persistent without any dynamic changes. Blood pressure in the office previously was high. I started on hydrochlorothiazide and did an echocardiogram. With anterolateral T-wave inversions, I sent her for an echocardiogram which was completely normal. With hydrochlorothiazide her blood pressure has improved significantly. She is denying any symptoms including no chest discomfort shortness of breath. Taking medications regularly. She returns for follow-up today. She was tested positive for COVID-19 along with her mother. She had dizziness and noticed her blood pressure to be low 100 at that stage card office. We advised her to stop the hydrochlorothiazide. Off thiazide diuretics her blood pressure has been running in 120s to 130s. She is saying that when she wakes up her blood pressure is low at 110 and her sister told her to take excess salt in her diet and she has been eating saltine. No chest pain or shortness of breath and overall doing well. 10/21/22: She returns for follow-up. She was diagnosed with iron deficiency anemia due to menorrhagia. She is perimenopausal at this stage. She said she was due to get iron infusions but by increasing iron and diet she was able to improve her iron levels and hemoglobin. She is currently just taking ferrous sulfate orally. She says she was quite fatigued when she was anemic but since her hemoglobin improved she has been feeling better. 11/26/2023: She is here for follow-up. Denying any symptoms. Anemia has been stable and she has been taking iron. Blood pressure is elevated. I have seen her blood pressure readings in chart and there has been high readings previously. She is saying that she was under lot of stress. Previously was on a thiazide diuretic which was stopped after she had COVID-19 and was dizzy and blood pressure was low. [facility] Medical History HTN (hypertension) Surgical History No pertinent past surgical history Family History Father Renal failure CVD (cardiovascular disease) Mother Alzheimers disease Social History Housing: House Alcohol intake: never Patient Tobacco Use Status: Never used Tobacco e-Cigarette/Vaping Use: Never Used Second Hand Smoke Exposure: No service: No Current occupational status: unemployed Cognitive needs: No Hearing needs: No Vision needs: No Review of Systems Const Denies chills, Denies fatigue, Denies fever(s), Denies frequent falls, Denies weakness, Denies weight gain and Denies weight loss ENT Denies dizziness Card Denies chest pain, Denies leg edema, Denies lightheadedness, Denies palpitations, Denies dyspnea and Denies dyspnea on exertion Resp Denies cough, Denies dyspnea and Denies dyspnea on exertion GI Denies hematochezia Musc Denies abnormal gait, Denies muscle weakness, Denies numbness, Denies radiating pain into limb and Denies tingling Neuro Denies abnormal gait, Denies dizziness, Denies frequent falls, Denies numbness, Denies tingling and Denies weakness Endo Denies fatigue and Denies palpitations Physical Exam Vital Signs: BMI result Body Mass Index 25.9 GENERAL APPEARANCE: in no acute distress, well developed, well nourished. NECK/THYROID: no carotid bruit, no jugular venous distention. SKIN: no suspicious lesions, warm and dry. HEART: no murmurs, regular rate and rhythm, S1, S2 normal. LUNGS: clear to auscultation bilaterally. ABDOMEN: normal, bowel sounds present, soft, nontender, nondistended. EXTREMITIES: no clubbing, cyanosis, or edema. PERIPHERAL PULSES: equal. NEUROLOGIC: nonfocal, alert and oriented. PSYCH: mood/affect full range. Office Procedures EKG Details: Sinus rhythm 83 beats per minute, normal axis, nonspecific T-wave changes, QTC 420 milliseconds. [id number], Complete Assessment & Plan Assessment & Plan (1) HTN (hypertension): Code(s): I10 - Essential (primary) hypertension Category: Medical (2) Iron deficiency: Code(s): E61.1 - Iron deficiency Category: Medical Plan [age] year female who is here for follow-up. She has hypertension and nonspecific T-wave changes on her ECG. ECG continues to be similar to before without any dynamic changes. She has no concerning symptoms currently. Blood pressure is elevated again. I have advised her to restart the hydrochlorothiazide 12.5 mg daily. She can continue to follow up with us once a year. On iron supplementation for iron-deficiency anemia due to menorrhagia. Thank you for allowing me to participate in the care of your patient. Please feel free to contact me if you have any questions. Medications: New hydrochlorothiazide 12.5 mg PO DAILY 60 tabs 3RF I10 - Essential (primary) hypertension Coding Level of Care Code Est Pt Level 4 (27894) Diagnoses HTN (hypertension) I10 Iron deficiency E61.1 CPT Codes EKG - CPT: 25215-[id number], Complete ([id number])
== END 2023-11-26 11:37 | disposition home or self-care (01) ==
PROVIDERS: PCP Internal Medicine; Visit Provider Internal Medicine Cardiovascular Disease
DX: I10 Essential (primary) hypertension (principal); E61.1 Iron deficiency
CPT/HCPCS: 93010; 99214

== ENCOUNTER → 2023-11-26 10:37 | Outpatient (BNVA) | payer OTHER, SELFPAY | PROVIDERS: PCP Internal Medicine; Visit Provider Internal Medicine Cardiovascular Disease | DX: I10 Essential (primary) hypertension (principal); E61.1 Iron deficiency; R94.31 Abnormal electrocardiogram [ECG] [EKG] | CPT/HCPCS: 93005; 99212 ==

== ENCOUNTER 2024-01-19 11:09 | Outpatient (AMB) | payer OTHER, SELFPAY ==
[2024-01-19 11:11] VITALS: BP 132/80; PULSE 78; O2SAT 98; BMI 26.5
--- NOTE | 2024-01-19 11:11 | A.OFFPC_ITS ---
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 Accompanied by: Self / Same As Patient Allergies No Known Allergies Allergy (Verified 01/19/24 11:11) Medication List - Last Reconciled 01/20/24 by Efraín Matthews MD cholecalciferol (vitamin D3) 25 mcg PO DAILY ferrous sulfate 325 mg PO DAILY hydrochlorothiazide 12.5 mg PO DAILY Tobacco use date assessed: 01/19/24 Dental Screening Dental Screen Date: 04/25/23 HPI PE HPI Details HTN on Rx; doing well PFSH Medical History HTN (hypertension) Surgical History No pertinent past surgical history Family History Father Renal failure CVD (cardiovascular disease) Mother Alzheimers disease Social History Housing: House Alcohol intake: never Patient Tobacco Use Status: Never used Tobacco Tobacco use type: Cigarette e-Cigarette/Vaping Use: Never Used Second Hand Smoke Exposure: No service: No Current occupational status: unemployed Cognitive needs: No Hearing needs: No Vision needs: No Questionnaire PHQ-9 Over the last 2 weeks, how often have you been bothered by any of the following problems? 1. Little interest or pleasure in doing things: not at all 2. Feeling down, depressed, or hopeless: not at all 3. Trouble falling or staying asleep, or sleeping too much: several days 4. Feeling tired or having little energy: several days 5. Poor appetite or overeating: not at all 6. Feeling bad about yourself - or that you are a failure or have let yourself or your family down: not at all 7. Trouble concentrating on things, such as reading the newspaper or watching television: not at all 8. Moving or speaking so slowly that other people could have noticed. Or the opposite - being so fidgety or restless that you have been moving around a lot more than usual: not at all 9. Thoughts that you would be better off or of hurting yourself in some way: not at all Total score: 2 Source: Developed by Drs. Florian Ocampo, Selina Regalado, Angel Crabtree and colleagues, with an educational riley from [employer]. Thrive Questionnaire Date Thrive assessed: 01/17/24 I am a: Patient What is your living situation today?: I have a steady place to live Within the past 12 months, did the food you bought not last and you didn't have the money to get more?: Never true Within the past 12 months, did you worry whether your food would run out before you got money to buy more?: Never true Do you have trouble paying for medicines?: No Do you have trouble getting transportation to medical appointments?: No Do you have trouble paying your heating and electricity bill?: No Do you have trouble taking care of your child, family member or friend?: No Do you have trouble with day-to-day activities such as bathing, preparing meals, shopping, managing finances, etc.?: Yes Are you currently unemployed and looking for a job?: No Are you interested in more education?: No Please select the resources that you would like help with: None Currently or been in a relationship where the following occur: No concerns reported THRIVE Score: 0 AUDIT C Alcohol Use Questionnaire (AUDIT-C) 1. How often do you have a drink containing alcohol?: Never 2. How many drinks containing alcohol do you have on a typical day when you are drinking?: 1 or 2 3. How often do you have six or more drinks on one occasion?: Never Total Score: 0 CLINT-7 AMB Questionnaire CLINT-7 Date CLINT - 7 assessed: 01/19/24 Feeling nervous, anxious, or on edge: 1 = Several days Not being able to stop or control worryin = Several days Worrying too much about different things: 1 = Several days Trouble relaxin = Several days Being so restless that it is hard to sit still: 0 = Not at all Becoming easily annoyed or irritable: 0 = Not at all Feeling afraid as if something awful might happen: 0 = Not at all Total CLINT-7 score (0-4 normal; 5-9 mild; 10-14 moderate; 15-21 severe): 4 Source: Developed by Drs. Florian Ocampo, eSlina Regalado, Angel Crabtree and colleagues, with an educational riley from [employer]. Review of Systems Const Denies chills, Denies fatigue, Denies headache(s) and Denies weight loss Eyes Denies change in vision, Denies diplopia and Denies eye pain ENT Denies vertigo, Denies dizziness, Denies headache(s) and Denies nasal discharge Card Denies chest pain, Denies rapid heart rate and Denies dyspnea on exertion Resp Denies chest congestion, Denies cough, Denies pain with cough and Denies dyspnea on exertion GI Denies abdominal pain, Denies hematochezia and Denies change in bowel habits Musc Denies myalgias, Denies arthralgias and Denies joint swelling Skin/Breast Denies lesions and Denies unusual bruising Neuro Denies vertigo, Denies dizziness, Denies headache(s) and Denies focal weakness Endo Denies fatigue Physical exam (Primary Care) Vital Signs: Last Vital Signs Pulse 78 01/19/24 11:11 BP 132/80 01/19/24 11:11 Pulse Ox 98 01/19/24 11:11 Oxygen Delivery Method Room Air 01/19/24 11:11 BMI result Body Mass Index 26.5 Tobacco/Smoking Status: Tobacco use Status Tobacco use date assessed 01/19/24 01/19/24 11:15 Patient Tobacco Use Status Never used Tobacco 01/19/24 11:15 Tobacco use type Cigarette 01/19/24 11:15 e-Cigarette/Vaping Use Never Used 01/19/24 11:15 PHQ-9: PHQ-9 Score PHQ-9: Total score 2 01/19/24 11:15 Thrive Assessment: Date of Thrive Assessment Date Thrive assessed 01/17/24 01/19/24 11:15 Currently or been in a relationship where the following occur: No concerns reported Const General: cooperative, healthy appearing and no acute distress Orientation/consciousness: oriented to person, oriented to place and oriented to time HENMT Head: Yes normal to inspection, Yes normocephalic and Yes atraumatic Mouth: Normal oral and palatal mucosa present and tongue normal Throat: Yes posterior oropharynx normal and Yes uvula midline Eyes General: appearance normal, both eyes and all related structures Neck Neck: Yes normal visual inspection, Yes full ROM and Yes no lymphadenopathy Thyroid: Thyroid normal Carotids: normal carotid upstroke Chest Chest palpation & inspection: normal inspection of the chest Resp Effort & Inspection: normal respiratory effort and able to speak in complete sentences Auscultation: clear to auscultation bilaterally Cardio Jugular venous distension: no JVD Palpation: normal PMI Rate: regular rate Rhythm: regular rhythm Heart sounds: S1 normal heart sound present and S2 normal heart sound present GI Inspection: Yes normal to inspection Palpation (GI): Soft to palpation and No hepatosplenomegaly present Auscultation: normal bowel sounds General: Yes no CVA tenderness Back/Spine/Pelvis Back: no CVA tenderness Skin General skin exam: no rashes or lesions noted Neuro General: oriented to person, oriented to place and oriented to time Extrem General: Yes normal to inspection and Yes full ROM Coding Level of Care Code Est Pt Prev Care 40-64y(86376) Diagnoses Physical exam Z00.00 HTN (hypertension) I10 Assessment & Plan Assessment & Plan (1) Physical exam: Code(s): Z00.00 - Encounter for general adult medical examination without abnormal findings Category: Medical Plan: stable; do labs (2) HTN (hypertension): Code(s): I10 - Essential (primary) hypertension Category: Medical Plan: stable; same rx Orders: Orders Complete Blood Count Auto Diff 01/19/24 Z13.0 - Encounter for screening for diseases of the blood and blood-forming organs and certain disorders involving the immune mechanism Comprehensive [place]. Panel Fast 01/19/24 Z13.9 - Encounter for screening, unspecified Lipid Panel 01/19/24 Z13.220 - Encounter for screening for lipoid disorders Ferritin 01/19/24 D64.9 - Anemia, unspecified Thyroid Stimulating Hormone 01/19/24 Z13.29 - Encounter for screening for other suspected endocrine disorder
== END 2024-01-19 11:34 | disposition home or self-care (01) ==
PROVIDERS: PCP Internal Medicine; Visit Provider Internal Medicine
DX: Z00.00 Encounter for general adult medical examination without abnormal findings (principal); I10 Essential (primary) hypertension

== ENCOUNTER → 2024-01-19 11:09 | Outpatient (BNVA) | payer OTHER, SELFPAY | PROVIDERS: PCP Internal Medicine; Visit Provider Internal Medicine | DX: Z00.00 Encounter for general adult medical examination without abnormal findings (principal); I10 Essential (primary) hypertension; D64.9 Anemia, unspecified | CPT/HCPCS: 96127; 99396 ==

== ENCOUNTER 2024-02-09 11:32 | Outpatient (REF) | payer OTHER, SELFPAY ==
[2024-02-09 11:43] LABS: MANUAL DIFF FLAG NO
[2024-02-09 12:06] LABS: Basophils Percent Auto 0.6 % (0-2); Eosinophils Absolute Auto 0.1 X10*3/uL (0.0-0.4); Eosinophils Percent Auto 1.7 % (0-4); Hematocrit 40.2 % (37.0-47.0); Hemoglobin 13.1 g/dl (12.0-16.0); Imm Gran Abs Auto 0.02 X10*3/uL (0.00-0.03); Imm Gran Pct Auto 0.4 % (0.0-0.4); Lymphocytes Percent Auto 38.4 % (20-40); Mean Corpuscular HGB Conc 32.6 g/dl (31.0-35.0); Mean Corpuscular Hemoglobin 27.7 pg (27.0-33.0); Mean Platelet Volume 10.1 fL (9.4-12.3); Monocytes Absolute Auto 0.4 X10*3/uL (0.1-1.2); Monocytes Percent Auto 7.3 % (2-11); Neutrophils Absolute Auto 2.7 x10*3/uL (2.0-8.3); Neutrophils Percent Auto 51.6 % (45-73); Platelet Count 293 X10*3/uL (160-400); Red Blood Count 4.73 X10*6/uL (4.20-5.50); Red Cell Distribution Width 14.4 % (11.0-16.0); White Blood Count 5.2 X10*3/uL (4.8-10.8)
[2024-02-09 12:35] LABS: Alanine Aminotransferase 25 U/L (0-31); Albumin Level 4.4 g/dL (3.5-5.0); Alkaline Phosphatase 94 U/L (39-117); Anion Gap 12 (12-20); Aspartate Amino Transferase 17 U/L (5-31); Bilirubin Total 0.3 mg/dL (0.0-1.0); Blood Urea Nitrogen 12 mg/dL (9-16); Calcium 9.7 mg/dL (8.4-10.2); Carbon Dioxide 27 mmol/L (22-29); Chloride 109 mmol/L (96-108); Cholesterol 244 mg/dL (<200); Estimated Glomerular Filt Rate > 60; Glucose Fasting 105 mg/dL (60-99); HDL Cholesterol 50 mg/dL (>40); LDL Cholesterol Calculated 160 mg/dL (<100); Potassium 3.6 mmol/L (3.3-5.1); Sodium 144 mmol/L (135-145); Total Protein 7.5 g/dL (6.5-8.0); Triglycerides 172 mg/dL (<150)
[2024-02-09 12:51] LABS: Ferritin 23 ng/mL (10-250); Thyroid Stimulating Hormone 2.18 uIU/mL (0.32-4.0)
== END 2024-02-09 11:33 | disposition home or self-care (01) ==
LOC: HO.LAB 11:32
PROVIDERS: PCP Internal Medicine; Visit Provider Internal Medicine
DX: D64.9 Anemia, unspecified (principal); Z13.0 Encounter for screening for diseases of the blood and blood-forming organs and certain disorders involving the immune mechanism; Z13.9 Encounter for screening, unspecified; Z13.220 Encounter for screening for lipoid disorders; Z13.29 Encounter for screening for other suspected endocrine disorder
CPT/HCPCS: 36415; 80053; 80061; 82728; 84443; 85025

== ENCOUNTER 2024-04-08 10:11 | Outpatient (REF) | payer OTHER, SELFPAY | END 2024-04-08 10:12 | disposition home or self-care (01) | LOC: HO.MAMMO 10:11 | PROVIDERS: PCP Internal Medicine; Visit Provider Internal Medicine | DX: Z12.31 Encounter for screening mammogram for malignant neoplasm of breast (principal) | CPT/HCPCS: 77063; 77067 ==

== ENCOUNTER → 2024-04-08 10:15 | Outpatient (BNV) | payer OTHER, SELFPAY | PROVIDERS: PCP Internal Medicine; Visit Provider Internal Medicine | DX: Z12.31 Encounter for screening mammogram for malignant neoplasm of breast (principal) | CPT/HCPCS: 77063; 77067 ==

== ENCOUNTER 2024-06-03 09:11 | Outpatient (AMB) | payer OTHER, SELFPAY ==
[2024-06-03 09:29] VITALS: BP 132/98; BMI 26.7
--- NOTE | 2024-06-03 09:29 | A.OFFPC_ITS ---
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 Required: No Accompanied by: Self / Same As Patient Allergies No Known Allergies Allergy (Verified 06/03/24 09:44) Medication List - Last Reconciled 06/03/24 by Joaquina Schaeffer MD cholecalciferol (vitamin D3) 25 mcg PO DAILY ferrous sulfate 325 mg PO DAILY hydrochlorothiazide 12.5 mg PO DAILY Tobacco use date assessed: 06/03/24 Dental Screening Dental Screen Date: 06/03/24 Did you have a dental visit in the last 12 months?: Yes Did you have a dental problem in the last 6 months where you did not have access to dental care?: No Was dental information given to patient?: Patient has dentist HPI HPI Comments History of Present Illness Details The patient is a 53-year-old female presenting with multiple concerns. Her essential hypertension is being managed with hydrochlorothiazide 12.5 mg, and she attributes fluctuations in her blood pressure to heightened stress from caregiving for her mother. She also reports on-going perimenopausal symptoms that have involved significant menstrual bleeding, previously managed with increased dietary iron to address associated anemia. She is experiencing hyperlipidemia with cholesterol at 244 but has chosen lifestyle modifications over medication, given a low cardiovascular risk. She reports recent episodes of hives possibly linked to wheat exposure, raising concerns about a wheat allergy. The patient has considered Cologuard due to a family history of colorectal cancer and expresses anxiety with invasive procedures. Will think about it and let me know in the next office visit. On vitamin-D supplements for her low vitamin-D. Anemia follow by Hematology- Oncology. [facility] Medical History (Updated 06/03/24 @ 12:16 by Joaquina Schaeffer MD) HTN (hypertension) Surgical History No pertinent past surgical history Family History Father Renal failure CVD (cardiovascular disease) Mother Alzheimers disease Social History Housing: House Alcohol intake: never Patient Tobacco Use Status: Never used Tobacco e-Cigarette/Vaping Use: Never Used Second Hand Smoke Exposure: No service: No Current occupational status: unemployed Cognitive needs: No Hearing needs: No Vision needs: No Questionnaire PHQ-9 Over the last 2 weeks, how often have you been bothered by any of the following problems? 1. Little interest or pleasure in doing things: not at all 2. Feeling down, depressed, or hopeless: several days 3. Trouble falling or staying asleep, or sleeping too much: not at all 4. Feeling tired or having little energy: not at all 5. Poor appetite or overeating: not at all 6. Feeling bad about yourself - or that you are a failure or have let yourself or your family down: not at all 7. Trouble concentrating on things, such as reading the newspaper or watching television: not at all 8. Moving or speaking so slowly that other people could have noticed. Or the opposite - being so fidgety or restless that you have been moving around a lot more than usual: not at all 9. Thoughts that you would be better off or of hurting yourself in some way: not at all Total score: 1 Depression Screening Interpretation: Negative Depression Screening Done: Yes 83893 - PHQ-9 Billing: Yes Source: Developed by Drs. Florian Ocampo, Selina Regalado, Angel Crabtree and colleagues, with an educational riley from [employer]. Thrive Questionnaire Date Thrive assessed: 06/03/24 I am a: Patient What is your living situation today?: I have a steady place to live Within the past 12 months, did the food you bought not last and you didn't have the money to get more?: Never true Within the past 12 months, did you worry whether your food would run out before you got money to buy more?: Never true Do you have trouble paying for medicines?: No Do you have trouble getting transportation to medical appointments?: No Do you have trouble paying your heating and electricity bill?: No Do you have trouble taking care of your child, family member or friend?: No Do you have trouble with day-to-day activities such as bathing, preparing meals, shopping, managing finances, etc.?: Yes Are you currently unemployed and looking for a job?: No Are you interested in more education?: No Please select the resources that you would like help with: None Currently or been in a relationship where the following occur: No concerns reported THRIVE Score: 0 AUDIT C Alcohol Use Questionnaire (AUDIT-C) 2. How many drinks containing alcohol do you have on a typical day when you are drinking?: 1 or 2 3. How often do you have six or more drinks on one occasion?: Never Total Score: 0 CLINT-7 AMB Questionnaire CLINT-7 Date CLINT - 7 assessed: 06/03/24 Feeling nervous, anxious, or on edge: 0 = Not at all Not being able to stop or control worryin = Not at all Worrying too much about different things: 0 = Not at all Trouble relaxin = Not at all Being so restless that it is hard to sit still: 0 = Not at all Becoming easily annoyed or irritable: 0 = Not at all Feeling afraid as if something awful might happen: 0 = Not at all Total CLINT-7 score (0-4 normal; 5-9 mild; 10-14 moderate; 15-21 severe): 0 Source: Developed by Drs. Florian Ocampo, Selina Regalado, Angel Crabtree and colleagues, with an educational riley from [employer]. CLINT-7 Assessment Billing CLINT-7 Assessment Tool: CLINT-7 Assessment 37565 Review of Systems Const All systems reviewed & are unremarkable except as noted in HPI and below Card Denies chest pain at rest, Denies chest pain with activity, Denies edema, Denies irregular heart rhythm, Denies claudication, Denies dyspnea, Denies dyspnea on exertion, Denies orthopnea, Denies paroxysmal nocturnal dyspnea and Denies slow heart rate Resp Denies cough, Denies dyspnea and Denies dyspnea on exertion GI Denies abdominal pain, Denies change in bowel habits, Denies excessive flatus, Denies nausea and Denies vomiting Denies urinary incontinence, Denies urinary hesitancy and Denies urinary urgency Musc Denies atrophy, Denies deformity and Denies limited range of motion Skin/Breast Denies bleeding lesions, Denies changing lesions and Denies rash Physical exam (Primary Care) Vital Signs: Last Vital Signs BP 132/98 H 06/03/24 09:29 BMI result Body Mass Index 26.7 Tobacco/Smoking Status: Tobacco use Status Tobacco use date assessed 06/03/24 06/03/24 09:36 Patient Tobacco Use Status Never used Tobacco 06/03/24 09:36 Tobacco use type 06/03/24 09:36 e-Cigarette/Vaping Use Never Used 06/03/24 09:36 PHQ-9: PHQ-9 Score PHQ-9: Total score 1 06/03/24 09:45 Depression Screening Interpretation: Negative Thrive Assessment: Date of Thrive Assessment Date Thrive assessed 06/03/24 06/03/24 09:36 Currently or been in a relationship where the following occur: No concerns reported Resp Effort & Inspection: normal respiratory effort Auscultation: clear to auscultation bilaterally Cardio Jugular venous distension: no JVD Rate: regular rate Rhythm: regular rhythm Heart sounds: S1 normal heart sound present and S2 normal heart sound present GI Inspection: Yes normal to inspection Palpation (GI): Soft to palpation and nontender Auscultation: normal bowel sounds Extrem General: Yes full ROM Psych Appearance: grossly normal Coding Level of Care Code Est Pt Level 4 (08031) Complex EM visit Add On G2211 Diagnoses Iron deficiency E61.1 HTN (hypertension) I10 Pure hypercholesterolemia E78.00 Hypovitaminosis D E55.9 Additional Codes CLINT-7 Assessment Billing - CLINT-7 Assessment Tool: CLINT-7 Assessment 80688 ([id number]) PHQ-9 - 63359 - PHQ-9 Billing: Yes ([id number]) Time Spent (min) 25 Assessment & Plan Assessment & Plan (1) Iron deficiency: Code(s): E61.1 - Iron deficiency Category: Medical (2) HTN (hypertension): Code(s): I10 - Essential (primary) hypertension Category: Medical (3) Pure hypercholesterolemia: Code(s): E78.00 - Pure hypercholesterolemia, unspecified Category: Medical (4) Hypovitaminosis D: Code(s): E55.9 - Vitamin D deficiency, unspecified Category: Medical Plan I am managing the patient's essential hypertension with hydrochlorothiazide and advise further study of lifestyle changes to mitigate her hyperlipidemia. For anemia, I acknowledged her effective change with increased dietary iron, and we will assess further vitamin levels and consider testing for gluten sensitivity in January, addressing concerns of wheat allergies. The potential stress- induced hives episodes are managed with close surveillance for the need for a potential marine farmer referral. The lifestyle modification, including a return to regular physical activity, is planned to assist with stress and her hyperlipidemia management. Patient was informed and verbally consented to the use of an ambient scribe for clinic note documentation during this visit. I discussed the management of the patient's essential hypertension exacerbated by stress, acknowledging the role of hydrochlorothiazide. We reviewed lifestyle modifications over medication for her hyperlipidemia, given her low 2% Hensley risk. We spoke about improving anemia with iron uptake, and in January's follow-up, along with a reevaluation of Vitamin D and potential gluten sensitivity. Alternate options like Cologuard were advised over colonoscopy based on anxiety over invasive examination. The patient was informed about stress-induced hives and agreed on monitoring with the potential need for an marine farmer evaluation if recurrent. I will review her condition and management efficacy at the January appointment. Orders: Orders Vitamin D 25-OH Total 8 Months E55.9 - Vitamin D deficiency, unspecified Complete Blood Count Auto Diff 8 Months D64.9 - Anemia, unspecified Celiac Disease Panel 8 Months D64.9 - Anemia, unspecified Lipid Panel 8 Months E78.5 - Hyperlipidemia, unspecified IRON PROFILE 8 Months D64.9 - Anemia, unspecified Patient Instructions: - Continue taking hydrochlorothiazide 12.5 mg as prescribed. - Engage in regular physical activity, such as walking, to help manage weight and stress. - Maintain a diet rich in iron to support blood levels. - Increase Vitamin D intake to 50 mcg daily as discussed with your sister. - Take Benadryl when experiencing any hives or itching. - Return in January for follow-up tests, including a reevaluation of your glucose, cholesterol, Vitamin D, and possible gluten sensitivity. - Consider options like Cologuard for colorectal cancer screening if colonoscopy anxiety persists. - Monitor and manage stress levels closely, given your caregiving responsibili ties.
== END 2024-06-03 10:16 | disposition home or self-care (01) ==
PROVIDERS: PCP Internal Medicine; Visit Provider Internal Medicine
DX: E61.1 Iron deficiency (principal); I10 Essential (primary) hypertension; E78.00 Pure hypercholesterolemia, unspecified; E55.9 Vitamin D deficiency, unspecified

== ENCOUNTER → 2024-06-03 09:11 | Outpatient (BNVA) | payer OTHER, SELFPAY | PROVIDERS: PCP Internal Medicine; Visit Provider Internal Medicine | DX: E61.1 Iron deficiency (principal); I10 Essential (primary) hypertension; E78.00 Pure hypercholesterolemia, unspecified; E55.9 Vitamin D deficiency, unspecified; Z79.899 Other long term (current) drug therapy | CPT/HCPCS: 96127; 99212 ==

== ENCOUNTER 2024-09-05 00:24 | Emergency (ER) | payer OTHER, SELFPAY ==
[2024-09-05 00:39] VITALS: BP 168/111; PULSE 116; RESP 20; TEMP 37.4; O2SAT 100; BMI 27.6
[2024-09-05 01:29] LABS: COVID-19 Test Negative (Negative); IDNOW Serial# 55D5AD1C; IDNOW Serial# 6674DD1D; Strep A Nucleic Acid Negative (Negative)
[2024-09-05 01:41] VITALS: BP 158/98; PULSE 98; RESP 18; TEMP 36.7; O2SAT 97
[2024-09-05] MEDS: Mag&Al/Sim/Diphenhyd/Lidocaine 10 ML ORAL.SUSP PO (01:44)
[2024-09-05 01:51] LABS: IDNOW Serial# 58CA691E; Influenza B2 Negative (Negative)
--- NOTE | 2024-09-05 02:34 | ED.GENADULT ---
HPI - General Adult General Chief complaint: Upper Respiratory Symptoms Stated complaint: flu like Time Seen by Provider: 09/05/24 00:57 Source: patient Mode of arrival: ambulatory Limitations: no limitations History of Present Illness ED Provider: Dr. Tavia Junior DO HPI narrative: 54 year old female with history of HTN presenting with sinus congestion, sore throat and painful swallowing ongoing for the last 7 days or so. Today noticed white patches on her tonsils and got nervosu she might have strep throat. 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 No reported fever. Initially thoguht she was dealing with allergies and took some OTC allergy relief which did help, but only intermittently. Has been sucking on Popsicles and honey to relieve the pain. Denies nausea or vomiting. No chest pain or difficulty breathing. No specific known sick contacts or recent travel. Related Data Home Medications ?Medication ?Instructions ?Recorded ?Confirmed cholecalciferol (vitamin D3) 25 25 mcg PO DAILY 10/21/22 06/03/24 mcg (1,000 unit) capsule Previous Rx's ?Medication ?Instructions ?Recorded ferrous sulfate 325 mg (65 mg 325 mg PO DAILY #90 tabs 06/20/21 iron) tablet hydrochlorothiazide 12.5 mg tablet 12.5 mg PO DAILY #90 tabs 05/24/24 Allergies Allergy/AdvReac Type Severity Reaction Status Date / Time No Known Allergies Allergy Verified 09/05/24 00:41 Review of Systems Review of Systems: as per HPI, full review of systems performed and negative but for the above mentioned pertinent positives and negatives. [facility] Past Medical History Attestation statement: The following information was validated with the patient. (HTN) Medical History HTN (hypertension) Surgical History No pertinent past surgical history Family History Family History Father Renal failure CVD (cardiovascular disease) Mother Alzheimers disease Social History Social History Housing: House Alcohol intake: never Patient Tobacco Use Status: Never used Tobacco e-Cigarette/Vaping Use: Never Used Second Hand Smoke Exposure: No Advance Directives: No Advance Directives Information Provided: Yes Do you have a plan to hurt others: No Plan service: No Current occupational status: unemployed Cognitive needs: No Hearing needs: No Vision needs: No Physical Exam ED Exam Exam: GENERAL: Well-Appearing, conversant, no acute distress. SKIN: Normal skin color for ethnicity, warm, dry, no rashes noted. HEENT:? Normocephalic, atraumatic, no stridor, posterior oropharynx slightly erythematous, tonsils with white patches c/w candidal infection, uvula midline, dentition intact, EOMI. NECK: Soft, supple, full ROM, midline structures nontender, no step-offs, no deformities, no lymphadenopathy. CHEST: Heart regular rate and rhythm, no murmurs, symmetric chest rise and fall. PULMONARY: Clear to auscultation bilaterally, no labored breathing, no wheezes/rhales/rhonchi. ABDOMINAL: Soft, nondistended, nontender, positive bowel sounds in all quadrants. : Deferred. MUSCULOSKELETAL: Normal tone, full range of motion, no deformities, no peripheral edema. NEURO: Alert and oriented x3, CN II through XII intact, equal strength and sensation bilateral upper and lower extremities, no focal neurologic deficits.? PSYCHIATRIC: Normal affect, fluid speech, good eye contact and appropriate demeanor. Vital Signs: Vital Signs - 24 hr 09/05/24 00:39 09/05/24 01:41 Temperature 99.4 F 98.0 F Pulse Rate 116 H 98 Respiratory Rate 20 18 Blood Pressure 168/111 H 158/98 H Pulse Oximetry 100 97 Oxygen Delivery Method Room Air Room Air BMI result Body Mass Index 27.6 Medications Administered Discontinued Medications Generic Name Dose Route Start Last Admin Trade Name Freq PRN Reason Stop Dose Admin Lidocaine/Diphenhydr/Alum/Mg/Simeth 10 ml 09/05/24 01:30 09/05/24 01:44 Mag&Al/Sim/Diphenhyd/Lidocaine 10 Ml Oral.Susp PO 09/05/24 01:31 10 ml ONCE ONE Administration Protocol Medical Decision Making Medical Decision Making MDM Narrative: Patient presents today with a chief complaint of sore throat. Differential diagnosis includes pharyngitis as well as ENT emergencies such as epiglottitis, retropharyngeal abscess, peritonsillar abscess, Sarbjit's angina, angioedema, allergic reaction, among many others. On exam, patient is nontoxic, tolerating their secretions, without signs of respiratory distress. Clinical picture is consistent with candidial infection. Drinking honey and sugary drinks has not helped the situation. I discussed this with her. Given diflucan, magic mouthwash and strict return precautions to the ED. Using shared decision making, plan for discharge home to follow-up with primary care and/or specialist.? Patient understands and agrees with plan for discharge.? Discharged home in stable condition. Differential Diagnosis Differential Diagnoses: The differential diagnosis associated with the presentation includes ( as above) Lab Data MDM Lab Attestation statement: I reviewed the patient's lab results. Labs: Lab Results 09/05/24 Range/Units 00:57 COVID-19 (KRISTOPHER) Negative (Negative) COVID-19 Clin Com See Note Influenza Type A (WANDA) Negative (Negative) Influenza Type B (WANDA) Negative (Negative) Influenza A & B Note See Note S. pyogenes GrpA WANDA Negative (Negative) Prescription Management I considered prescription management with: Pain Medication and Other (antifungal) Discharge Plan Discharge Clinical Impression: Ashley laryngitis Patient Disposition: Home, Self-Care Instructions: Oral Candidiasis (ED) Additional Instructions: Use your mouthwashup to 4 times a day for the next 5 days. If your pain continues or if you develop a fever despite the medications, please return to the emergency department immediately. Otherwise follow-up with your primary care doctor as soon as possible. Avoid sugary lozenges or syrups. Prescriptions: No Action ferrous sulfate 325 mg (65 mg iron) tablet 325 mg PO DAILY Qty: 90 0RF hydrochlorothiazide 12.5 mg tablet 12.5 mg PO DAILY Qty: 90 3RF cholecalciferol (vitamin D3) 25 mcg (1,000 unit) capsule 25 mcg PO DAILY Interventions: ED Discharge Assessment Last Done: 09/05/24 02:59 Discharge Date/Time: 09/05/24 03:00 Print Language: Tajik
--- NOTE | 2024-09-05 02:45 | PC.NURSE ---
script pulled from [facility] and given to , per request.
[2024-09-05 02:59] VITALS: BP 158/98; PULSE 98; RESP 18; TEMP 36.7; O2SAT 97
== END 2024-09-05 03:00 | disposition home or self-care (01) ==
PROVIDERS: Emergency Medicine; Emergency Provider Emergency Medicine
DX: J04.0 Acute laryngitis (principal); Z03.818 Encounter for observation for suspected exposure to other biological agents ruled out; Z79.899 Other long term (current) drug therapy
CPT/HCPCS: 87502; 87635; 87651; 99282; 99283

== ENCOUNTER 2024-10-21 11:21 | Outpatient (AMB) | payer OTHER, SELFPAY ==
--- NOTE | 2024-10-21 11:24 | A.OFFPC_ITS ---
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 Required: No Accompanied by: Self / Same As Patient Allergies No Known Allergies Allergy (Verified 10/21/24 12:06) Medication List - Last Reconciled 10/21/24 by MAX Hancock cholecalciferol (vitamin D3) 25 mcg PO DAILY ferrous sulfate 325 mg PO DAILY hydrochlorothiazide 12.5 mg PO DAILY Tobacco use date assessed: 10/21/24 Dental Screening Dental Screen Date: 10/21/24 Did you have a dental visit in the last 12 months?: Yes Did you have a dental problem in the last 6 months where you did not have access to dental care?: No Was dental information given to patient?: Patient has dentist HPI upper respiratory issues HPI Details The patient is a 54-year-old female presenting with concerns of p ersistent throat discomfort and hoarseness, alongside management of allergic symptoms and hypertension. The patient reports experiencing new onset of allergic symptoms since late August, characterized by a heavy head and throat discomfort without pain. She initially suspected a streptococcal infection and sought emergency care, where tests for COVID-19 and other infections returned negative results. The emergency physician attributed her symptoms to perimenopausal hormonal changes, which can trigger new allergies. The patient was advised to take loratadine daily, which initially alleviated her symptoms. However, she recently experienced a recurrence of symptoms, including hoarseness and a sensation of a heavy head, without associated pain or significant cough. She has been self-monitoring for COVID-19 with negative results and is concerned about potential transmission to her mother, whom she cares for. The patient has a history of hypertension, which is exacerbated by stress related to caregiving responsibilities. She monitors her blood pressure at home, noting fluctuations with stress, and is under the care of a central office operator who has considered diuretic therapy. The patient also reports a history of oral candidiasis, which resolved with the use of magic mouthwash. She maintains hydration and dietary adjustments to manage her symptoms, including increased fluid intake and use of chicken broth and herbal teas. [facility] Medical History HTN (hypertension) Surgical History No pertinent past surgical history Family History Father Renal failure CVD (cardiovascular disease) Mother Alzheimers disease Social History Housing: House Alcohol intake: never Patient Tobacco Use Status: Never used Tobacco e-Cigarette/Vaping Use: Never Used Second Hand Smoke Exposure: No service: No Current occupational status: unemployed Cognitive needs: No Hearing needs: No Vision needs: No Questionnaire PHQ-9 Over the last 2 weeks, how often have you been bothered by any of the following problems? 1. Little interest or pleasure in doing things: not at all 2. Feeling down, depressed, or hopeless: not at all 3. Trouble falling or staying asleep, or sleeping too much: several days 4. Feeling tired or having little energy: several days 5. Poor appetite or overeating: not at all 6. Feeling bad about yourself - or that you are a failure or have let yourself or your family down: not at all 7. Trouble concentrating on things, such as reading the newspaper or watching television: not at all 8. Moving or speaking so slowly that other people could have noticed. Or the opposite - being so fidgety or restless that you have been moving around a lot more than usual: not at all 9. Thoughts that you would be better off or of hurting yourself in some way: not at all Total score: 2 Depression Screening Interpretation: Negative Depression Screening Done: Yes Source: Developed by Drs. Florian Ocampo, Selina Regalado, Angel Crabtree and colleagues, with an educational riley from [employer]. Thrive Questionnaire Date Thrive assessed: 10/21/24 I am a: Parent/Caregiver What is your living situation today?: I have a steady place to live Within the past 12 months, did the food you bought not last and you didn't have the money to get more?: I choose not to answer this question Within the past 12 months, did you worry whether your food would run out before you got money to buy more?: I choose not to answer this question Do you have trouble paying for medicines?: I choose not to answer this question Do you have trouble getting transportation to medical appointments?: No Do you have trouble paying your heating and electricity bill?: I choose not to answer this question Do you have trouble taking care of your child, family member or friend?: No Do you have trouble with day-to-day activities such as bathing, preparing meals, shopping, managing finances, etc.?: No Are you currently unemployed and looking for a job?: I choose not to answer this question Are you interested in more education?: I choose not to answer this question Please select the resources that you would like help with: None Currently or been in a relationship where the following occur: No concerns reported THRIVE Score: 0 AUDIT C Alcohol Use Questionnaire (AUDIT-C) 1. How often do you have a drink containing alcohol?: Never Total Score: 0 CLINT-7 AMB Questionnaire CLINT-7 Date CLINT - 7 assessed: 10/21/24 Feeling nervous, anxious, or on edge: 1 = Several days Not being able to stop or control worryin = Several days Worrying too much about different things: 1 = Several days Trouble relaxin = Several days Being so restless that it is hard to sit still: 1 = Several days Becoming easily annoyed or irritable: 0 = Not at all Feeling afraid as if something awful might happen: 0 = Not at all Total CLINT-7 score (0-4 normal; 5-9 mild; 10-14 moderate; 15-21 severe): 5 Source: Developed by Drs. Florian Ocampo, Selina Regalado, Angel Crabtree and colleagues, with an educational riley from [employer]. Review of Systems Const Denies body aches, Denies chills, Denies fever(s), Denies headache(s) and Denies poor appetite Eyes Reports no additional complaints ENT Denies dysphagia, Denies dizziness, Denies headache(s), Reports hoarseness, Reports nasal congestion (Intermittent), Denies odynophagia and Reports sore throat (Mild) Card Denies chest pain, Denies syncope, Denies edema, Denies irregular heart rhythm, Denies lightheadedness and Denies dyspnea Resp Reports cough (On and off) and Denies dyspnea GI Denies abdominal pain, Denies constipation, Denies dysphagia, Denies diarrhea, Denies nausea, Denies odynophagia and Denies vomiting Reports no additional complaints Musc Reports no additional complaints and Denies abnormal gait Skin/Breast Reports system reviewed and no additional complaints, except as documented Neuro Denies Abnormal speech present, Denies abnormal gait, Denies dizziness, Denies syncope and Denies headache(s) Psych Reports no additional complaints Physical exam (Primary Care) Vital Signs: Last Vital Signs Temp 97.5 F 10/21/24 11:25 Pulse 105 H 10/21/24 11:25 Resp 18 10/21/24 11:25 BP 164/90 H 10/21/24 11:25 Pulse Ox 97 10/21/24 11:25 Oxygen Delivery Method Room Air 10/21/24 11:25 BMI result Body Mass Index 28.4 Tobacco/Smoking Status: Tobacco use Status Tobacco use date assessed 10/21/24 10/21/24 11:39 Patient Tobacco Use Status Never used Tobacco 10/21/24 11:39 Tobacco use type 10/20/24 12:06 e-Cigarette/Vaping Use Never Used 10/21/24 11:39 PHQ-9: PHQ-9 Score PHQ-9: Total score 2 10/21/24 12:24 Depression Screening Interpretation: Negative Thrive Assessment: Date of Thrive Assessment Date Thrive assessed 10/21/24 10/21/24 11:39 Currently or been in a relationship where the following occur: No concerns reported Const General: healthy appearing, no acute distress, alert and awake Nutritional Appearance: well nourished Orientation/consciousness: oriented to person, oriented to place and oriented to time [facility] Ears: TM's normal bilaterally General nose exam: Abnormal mucous membranes and turbinates present erythematous bilateral Throat: Yes posterior oropharynx normal Eyes Conjunctivae: conjunctivae normal Sclerae: sclerae normal Pupils: Equal, round and reactive pupils present Neck Neck: Yes no lymphadenopathy and Yes no JVD Thyroid: Thyroid normal Carotids: no bruits Resp Effort & Inspection: normal respiratory effort and not tachypneic Auscultation: no crackles, no rales, no rhonchi and no wheezes Cardio Rate: regular rate Rhythm: regular rhythm Heart sounds: no murmurs and normal S1 and S2 GI Palpation (GI): Soft to palpation, nontender, no hepatomegaly and no splenomegaly Auscultation: normal bowel sounds Skin General skin exam: no rashes or lesions noted and dry skin Neuro General: oriented to person, oriented to place and oriented to time Cranial nerves: Yes Equal, round and reactive pupils present Speech: No Abnormal speech present Gait exam (Neuro): Normal gait present Motor exam (neuro): no tremor noted Extrem Right upper extremity: full ROM Left upper extremity: full ROM Right lower extremity: full ROM; no edema Left lower extremity: full ROM; no edema Psych Mental Status: mental status grossly normal Speech and movement: Normal speech and movement present Affect: normal affect Attitude: cooperative Thought process: Normal thought process present Coding Level of Care Code Est Pt Level 3 (03040) Diagnoses Hypertension, unspecified type I10 Hypertension type: unspecified Allergic rhinitis, unspecified seasonality, unspecified trigger J30.9 Allergic rhinitis trigger: unspecified Allergic rhinitis seasonality: unspecified Time Spent (min) 31 Assessment & Plan Assessment & Plan (1) HTN (hypertension): Code(s): I10 - Essential (primary) hypertension Category: Medical Qualifiers: Hypertension type: unspecified Qualified Code(s): I10 - Essential (primary) hypertension Plan: The patient has a history of hypertension, which is exacerbated by stress related to caregiving responsibilities. She is advised to continue monitoring her blood pressure and maintain hydration to help manage her condition. Reinforced low-salt diet. (2) Allergic rhinitis: Code(s): J30.9 - Allergic rhinitis, unspecified Category: Medical Qualifiers: Allergic rhinitis trigger: unspecified Allergic rhinitis seasonality: unspecified Qualified Code(s): J30.9 - Allergic rhinitis, unspecified Plan: The patient has been experiencing symptoms of allergic rhinitis, including throat discomfort and hoarseness. She has been advised to switch from loratadine to another antihistamine, such as Zyrtec or Marianne, and to use a nasal spray to alleviate symptoms. Encouraged adequate fluid hydration. Medications: New fluticasone propionate 50 mcg/actuation administer into each nostril 1 spray intranasal BID 16 grams 3RF
[2024-10-21 11:25] VITALS: BP 164/90; PULSE 105; RESP 18; TEMP 36.4; O2SAT 97; BMI 28.4
== END 2024-10-21 12:28 | disposition home or self-care (01) ==
LOC: HO.HMCH 11:22
PROVIDERS: PCP Internal Medicine
DX: I10 Essential (primary) hypertension (principal); J30.9 Allergic rhinitis, unspecified

== ENCOUNTER → 2024-10-21 11:21 | Outpatient (BNVA) | payer OTHER, SELFPAY | PROVIDERS: PCP Internal Medicine | DX: I10 Essential (primary) hypertension (principal); J30.9 Allergic rhinitis, unspecified; Z13.31 Encounter for screening for depression; Z13.39 Encounter for screening examination for other mental health and behavioral disorders | CPT/HCPCS: 99212 ==

== ENCOUNTER 2024-12-01 09:44 | Outpatient (AMB) | payer OTHER, SELFPAY ==
--- NOTE | 2024-12-01 09:58 | MHC.OFFVIS ---
Vital Signs 12/01/24 09:59 Height 5 ft 1 in Weight 152 lb 1.903 oz BMI 28.7 BP 150/80 H Blood Pressure Location Lt brachial Position Sitting Pulse 91 Pulse Source Monitor Intake Visit Reasons: 1 yr f/up Intake Note: 1 yr f/up Dry Press Operator Required: No Accompanied by: Self / Same As Patient Allergies No Known Allergies Allergy (Verified 10/21/24 12:06) Medication List - Last Reconciled 12/01/24 by Jose Duckworth MD cholecalciferol (vitamin D3) 50 mcg PO DAILY ferrous sulfate 325 mg PO DAILY fluticasone propionate 50 mcg/actuation 1 spray intranasal BID hydrochlorothiazide 12.5 mg PO DAILY HPI Comments Details: Pleasant 54-year-old female seen for abnormal EKG. She has anterolateral T-wave inversions on EKG which have been persistent without any dynamic changes. Blood pressure in the office previously was high. I started on hydrochlorothiazide and did an echocardiogram. With anterolateral T-wave inversions, I sent her for an echocardiogram which was completely normal. With hydrochlorothiazide her blood pressure has improved significantly. She is denying any symptoms including no chest discomfort shortness of breath. Taking medications regularly. She returns for follow-up today. She was tested positive for COVID-19 along with her mother. She had dizziness and noticed her blood pressure to be low 100 at that stage card office. We advised her to stop the hydrochlorothiazide. Off thiazide diuretics her blood pressure has been running in 120s to 130s. She is saying that when she wakes up her blood pressure is low at 110 and her sister told her to take excess salt in her diet and she has been eating saltine. No chest pain or shortness of breath and overall doing well. 10/21/22: She returns for follow-up. She was diagnosed with iron deficiency anemia due to menorrhagia. She is perimenopausal at this stage. She said she was due to get iron infusions but by increasing iron and diet she was able to improve her iron levels and hemoglobin. She is currently just taking ferrous sulfate orally. She says she was quite fatigued when she was anemic but since her hemoglobin improved she has been feeling better. 11/26/2023: She is here for follow-up. Denying any symptoms. Anemia has been stable and she has been taking iron. Blood pressure is elevated. I have seen her blood pressure readings in chart and there has been high readings previously. She is saying that she was under lot of stress. Previously was on a thiazide diuretic which was stopped after she had COVID-19 and was dizzy and blood pressure was low. 12/01/2024: She is here for follow-up. Denying any chest pain or shortness of breath. Her blood pressure is elevated in the office. She is saying that she has anxiety when she comes to the office and blood pressures are always elevated. She has been taking hydrochlorothiazide 12.5 mg daily. [facility] Medical History HTN (hypertension) Surgical History No pertinent past surgical history Family History Father Renal failure CVD (cardiovascular disease) Mother Alzheimers disease Social History Housing: House Alcohol intake: never Patient Tobacco Use Status: Never used Tobacco e-Cigarette/Vaping Use: Never Used Second Hand Smoke Exposure: No service: No Current occupational status: unemployed Cognitive needs: No Hearing needs: No Vision needs: No Review of Systems Const Denies chills, Denies fatigue, Denies fever(s), Denies frequent falls, Denies weakness, Denies weight gain and Denies weight loss ENT Denies dizziness Card Denies chest pain, Denies leg edema, Denies lightheadedness, Denies palpitations, Denies dyspnea and Denies dyspnea on exertion Resp Denies cough, Denies dyspnea and Denies dyspnea on exertion GI Denies hematochezia Musc Denies abnormal gait, Denies muscle weakness, Denies numbness, Denies radiating pain into limb and Denies tingling Neuro Denies abnormal gait, Denies dizziness, Denies frequent falls, Denies numbness, Denies tingling and Denies weakness Endo Denies fatigue and Denies palpitations Physical Exam Vital Signs: Last Vital Signs Pulse 91 12/01/24 09:59 BP 150/80 H 12/01/24 09:59 BMI result Body Mass Index 28.7 GENERAL APPEARANCE: in no acute distress, well developed, well nourished. NECK/THYROID: no carotid bruit, no jugular venous distention. SKIN: no suspicious lesions, warm and dry. HEART: no murmurs, regular rate and rhythm, S1, S2 normal. LUNGS: clear to auscultation bilaterally. ABDOMEN: normal, bowel sounds present, soft, nontender, nondistended. EXTREMITIES: no clubbing, cyanosis, or edema. PERIPHERAL PULSES: equal. NEUROLOGIC: nonfocal, alert and oriented. PSYCH: mood/affect full range. Office Procedures EKG Details: Sinus rhythm 91 beats per minute, normal axis, nonspecific T-wave changes-old, QTC 420 milliseconds. [id number], Complete Assessment & Plan Assessment & Plan (1) Abnormal ECG: Code(s): R94.31 - Abnormal electrocardiogram [ECG] [EKG] Category: Medical (2) HTN (hypertension): Code(s): I10 - Essential (primary) hypertension Category: Medical Qualifiers: Hypertension type: unspecified Qualified Code(s): I10 - Essential (primary) hypertension Plan [age] year female with hypertension and precordial T-wave inversions which has been chronic. No dynamic changes noted. Her blood pressure was elevated previously and she was started on hydrochlorothiazide. On follow-up her blood pressure continues to be elevated but she is saying that she is anxious when she goes to doctor's visit and blood pressure is always elevated. I have seen through her blood pressure readings for the whole last year and mostly blood pressure is elevated. I have advised her that she has hypertension and would benefit from titration of medications and I was considering to add spironolactone 25 mg daily. She wishes to monitor this and after some discussion we have decided to refer her to Nephrology to get a 24 hour blood pressure monitor. Continue same medications for now. Thank you for allowing me to participate in the care of your patient. Please feel free to contact me if you have any questions. Coding Level of Care Code Est Pt Level 4 (17120) Diagnoses Abnormal ECG R94.31 Hypertension, unspecified type I10 Hypertension type: unspecified CPT Codes EKG - CPT: 69261-[id number], Complete ([id number])
[2024-12-01 09:59] VITALS: BP 150/80; PULSE 91; BMI 28.7
== END 2024-12-01 10:23 | disposition home or self-care (01) ==
LOC: HO.HCS 09:45
PROVIDERS: PCP Internal Medicine; Visit Provider Internal Medicine Cardiovascular Disease
DX: R94.31 Abnormal electrocardiogram [ECG] [EKG] (principal); I10 Essential (primary) hypertension
CPT/HCPCS: 93010; 99214

== ENCOUNTER → 2024-12-01 09:44 | Outpatient (BNVA) | payer OTHER, SELFPAY | PROVIDERS: PCP Internal Medicine; Visit Provider Internal Medicine Cardiovascular Disease | DX: I10 Essential (primary) hypertension (principal); R94.31 Abnormal electrocardiogram [ECG] [EKG] | CPT/HCPCS: 93005; 99212 ==

== ENCOUNTER 2024-12-24 10:48 | Outpatient (AMB) | payer OTHER, SELFPAY ==
--- NOTE | 2024-12-24 11:09 | HO.NEPHOV ---
Vital Signs 12/24/24 11:14 Height 5 ft 1 in Weight 151 lb 6 oz BMI 28.6 BP 160/90 H Blood Pressure Location Rt brachial Position Sitting Pulse 64 Pulse Source Pulse Oximeter Pulse Oximetry (%) 99 Oxygen Delivery Method Room Air Intake Visit Reasons: INP: Essential (primary) hypertension-Conf Hammer Driver Required: No Accompanied by: Self / Same As Patient Allergies No Known Allergies Allergy (Verified 12/24/24 11:13) HPI Comments Details: I had the pleasure of seeing Jared in consultation for labile hypertension. She is currently retired. In the past she had anterolateral T-wave inversions on EKG which had been persistent without any dynamic changes. She had seen a steaming machine operator and had undergone echocardiogram which was normal. She was initially initiated on hydrochlorothiazide by him which was subsequently discontinued but to be re-initiated again. She was attributing her lability in blood pressure due to menopausal symptoms. She has normal diet and is currently active. She does not take any excessive nonsteroidal anti-inflammatories. Her renal functions have been normal. She has no coronary artery disease, carotid stenosis, congestive heart failure, CVA, PAD or YAEL. Her serum potassium has been on the low-normal side on hydrochlorothiazide. She has not taken any other antihypertensive medications. She monitors her blood pressure at home closely. She feels well. [facility] Medical History HTN (hypertension) Surgical History No pertinent past surgical history Family History Father Renal failure CVD (cardiovascular disease) Mother Alzheimers disease Social History Housing: House Alcohol intake: never Patient Tobacco Use Status: Never used Tobacco e-Cigarette/Vaping Use: Never Used Second Hand Smoke Exposure: No service: No Current occupational status: unemployed Cognitive needs: No Hearing needs: No Vision needs: No Review of Systems Const All systems reviewed & are unremarkable except as noted in HPI and below Physical Exam Vital Signs: Last Vital Signs Pulse 64 12/24/24 11:14 BP 160/90 H 12/24/24 11:14 Pulse Ox 99 12/24/24 11:14 Oxygen Delivery Method Room Air 12/24/24 11:14 BMI result Body Mass Index 28.6 Const General: comfortable and no acute distress Orientation/consciousness: patient oriented x3 HEENT Head: Yes normocephalic Mouth: Normal oral and palatal mucosa present Eyes EOM: EOMs intact bilaterally Neck Neck: Yes supple Resp Auscultation: clear to auscultation bilaterally Cardio Jugular venous distension: no JVD Rate: regular rate GI Palpation (GI): Soft to palpation Auscultation: normal bowel sounds General: Yes no CVA tenderness Back/Spine/Pelvis Back: no CVA tenderness Skin General skin exam: no rashes or lesions noted Neuro General: patient oriented x3 and moves all extremities Extrem General: Yes no pedal edema Assessment & Plan Assessment & Plan (1) HTN (hypertension): Code(s): I10 - Essential (primary) hypertension Category: Medical Qualifiers: Hypertension type: unspecified Qualified Code(s): I10 - Essential (primary) hypertension Plan Jared has labile hypertension. She is currently on hydrochlorothiazide. Her blood pressure is still not at goal. I have ordered 24 hour ambulatory blood pressure monitor along with further studies including renal imaging. She was encouraged to maintain good activity level and consume a low-sodium in the diet. Her renal functions are normal. I shall adjust her blood pressure medications based on evolving data. All these have been discussed in detail and I had the opportunity to answer all questions. Follow-up appointment given. Orders: Orders US renal doppler 2 Weeks I10 - Essential (primary) hypertension US renal BI 2 Weeks I10 - Essential (primary) hypertension Cortisol Random 2 Weeks I10 - Essential (primary) hypertension Aldost/Renin 2 Weeks I10 - Essential (primary) hypertension TSH reflex Free T4 2 Weeks I10 - Essential (primary) hypertension Metanephrines, Plasma 2 Weeks I10 - Essential (primary) hypertension Aldosterone 2 Weeks I10 - Essential (primary) hypertension Renin 2 Weeks I10 - Essential (primary) hypertension Protein Creatinine Ratio, Ur 2 Weeks I10 - Essential (primary) hypertension AMB 24 HR B/P Monitor PLACEMENT Today I10 - Essential (primary) hypertension Coding Level of Care Code New Pt Level 4 (93703) Diagnoses Hypertension, unspecified type I10 Hypertension type: unspecified
[2024-12-24 11:14] VITALS: BP 160/90; PULSE 64; O2SAT 99; BMI 28.6
== END 2024-12-24 11:49 | disposition home or self-care (01) ==
LOC: HO.HKA 10:49
PROVIDERS: PCP Internal Medicine; Referring Provider Internal Medicine Cardiovascular Disease; Visit Provider Internal Medicine Nephrology
DX: I10 Essential (primary) hypertension (principal)
CPT/HCPCS: 99204

== ENCOUNTER → 2024-12-24 10:48 | Outpatient (BNVA) | payer OTHER, SELFPAY | PROVIDERS: PCP Internal Medicine; Referring Provider Internal Medicine Cardiovascular Disease; Visit Provider Internal Medicine Nephrology | DX: I10 Essential (primary) hypertension (principal) | CPT/HCPCS: 99202 ==

== ENCOUNTER 2025-01-07 08:27 | Outpatient (REF) | payer OTHER, SELFPAY ==
--- NOTE | ~2025-01-07 | US_ITS ---
CLINICAL HISTORY: I10 - Essential (primary) hypertension Doppler arterial ultrasound of the renal arteries. Comparison: None Findings: Right kidney normal size and echotexture, 12.8 cm length. No hydronephrosis. Normal color flow. An upper pole cysts measuring 14 x 13 x 14 mm reveals an equivocal echogenic internal septation (Bosniak category 2 or 2 F). Left kidney normal size and echotexture, 11.7 cm length. No hydronephrosis. Normal color flow. A lower pole similar-appearing cysts measuring up to 12 mm and an interpolar similar-appearing cysts measuring up to 8 mm are noted. A lower pole nonshadowing echogenic focus measuring up to 3 mm and an interpolar nonshadowing echogenic focus measuring up to 3 mm are present, possible tiny nonobstructing calculi. Doppler arterial ultrasound of the renal arteries: Right renal artery: Peak systolic velocities up to 239 cm/sec are present proximally, compatible with hemodynamically significant stenoses (greater than 60%). Remaining peak systolic velocities appear within normal range as do resistive indices. Left renal artery: Peak systolic velocities are within normal limits measuring up to 159 cm/sec. Resistive indices are within normal range. Impression: 1. Evidence of greater than 60% stenoses involving proximal right renal artery. 2. No significant left renal artery stenoses. 3. Bilateral renal cysts and possible nonobstructing left renal calculi as described above. This document has been electronically signed by: Librado Thompson MD on 01/07/2025 14:48:39
== END 2025-01-07 08:28 | disposition home or self-care (01) ==
LOC: HO.US 08:27
PROVIDERS: PCP Internal Medicine; Visit Provider Internal Medicine Nephrology
DX: I10 Essential (primary) hypertension (principal)
CPT/HCPCS: 76775; 93975

== ENCOUNTER → 2025-01-07 08:44 | Outpatient (BNV) | payer OTHER, SELFPAY | PROVIDERS: PCP Internal Medicine; Visit Provider Radiology Diagnostic Radiology | DX: N28.1 Cyst of kidney, acquired (principal); I70.1 Atherosclerosis of renal artery | CPT/HCPCS: 76775 ==

== ENCOUNTER 2025-01-07 09:36 | Outpatient (REF) | payer OTHER, SELFPAY ==
[2025-01-07 10:04] LABS: MANUAL DIFF FLAG NO
[2025-01-07 10:35] LABS: Hematocrit 43.2 % (37.0-47.0); Hemoglobin 14.0 g/dl (12.0-16.0); Imm Gran Abs Auto 0.01 X10*3/uL (0.00-0.03); Imm Gran Pct Auto 0.2 % (0.0-0.4); Lymphocytes Absolute Auto 2.3 X10*3/uL (1.2-4.9); Mean Corpuscular HGB Conc 32.4 g/dl (31.0-35.0); Mean Corpuscular Hemoglobin 27.6 pg (27.0-33.0); Mean Corpuscular Volume 85.0 fL (80.0-98.0); NRBC Abs Auto 0.000 X10*3/uL (0.0-0.012); NRBC Pct Auto 0.0 /100WBC (0.0-0.2); Platelet Count 289 X10*3/uL (160-400); Red Blood Count 5.08 X10*6/uL (4.20-5.50); White Blood Count 6.3 X10*3/uL (4.8-10.8)
[2025-01-07 10:58] LABS: Protein/Creatinine Ratio, Ur 0.10 (<0.2); Total Protein Urine Random 8 mg/dL (<12)
[2025-01-07 11:04] LABS: Cholesterol 252 mg/dL (<200); HDL Cholesterol 50 mg/dL (>40); Iron 54 mcg/dL (30-160); Percent Iron Saturation 15 % (15-50); Total Iron Binding Capacity 358 mcg/dL (228-428); Triglycerides 111 mg/dL (<150); Unsaturated Iron Binding 304 ug/dL
[2025-01-10 14:48] LABS: Immunoglobulin A 182 mg/dL (47-310)
[2025-01-10 17:33] LABS: Metanephrine, Free 38 pg/mL (<=57); Normetanephrines, Free 84 pg/mL (<=148); Total Metanephrine, Free 122 pg/mL (<=205)
[2025-01-15 14:24] LABS: Plasma Renin Activity 0.81 ng/mL/h (0.25-5.82)
== END 2025-01-07 09:37 | disposition home or self-care (01) ==
LOC: HO.LAB 09:36
PROVIDERS: PCP Internal Medicine; Visit Provider Internal Medicine Nephrology
DX: I10 Essential (primary) hypertension (principal); E55.9 Vitamin D deficiency, unspecified; D64.9 Anemia, unspecified; E78.5 Hyperlipidemia, unspecified
CPT/HCPCS: 36415; 80061; 82088; 82306; 82533; 82570; 82784; 83540; 83835; 84156; 84244; 84443; 85025; 86364

== ENCOUNTER 2025-01-20 10:13 | Outpatient (AMB) | payer OTHER, SELFPAY ==
--- NOTE | 2025-01-20 10:28 | A.OFFPC_ITS ---
Vital Signs 01/20/25 10:29 Height 5 ft 1 in Weight 149 lb BMI 28.2 BP 152/78 H Blood Pressure Location Lt brachial Position Sitting Pulse 102 H Pulse Source Pulse Oximeter Pulse Oximetry (%) 98 Oxygen Delivery Method Room Air Intake Visit Reasons: pe Fifth Hand Required: No Accompanied by: Self / Same As Patient Allergies No Known Allergies Allergy (Verified 01/20/25 10:42) Medication List - Last Reconciled 01/20/25 by Joaquina Schaeffer MD cholecalciferol (vitamin D3) 50 mcg PO DAILY ferrous sulfate 325 mg PO DAILY fluticasone propionate 50 mcg/actuation 1 spray intranasal BID hydrochlorothiazide 12.5 mg PO DAILY hydrocortisone 2.5% 1 appl topical BID Tobacco use date assessed: 12/21/24 Dental Screening Dental Screen Date: 12/21/24 HPI HPI Comments History of Present Illness Details The patient is a 54 year old female presenting for a physical exam. She has a history of hypertension and is being followed by a apricot washer. She has been taking hydrochlorothiazide 12.5 mg and ferrous sulfate 325 mg. Her apricot washer suspects white coat syndrome as her home blood pressure readings are good. The patient is scheduled for a 24-hour ambulatory blood pressure monitor next week. Her apricot washer may discontinue the hydrochlorothiazide depending on the results. A recent renal ultrasound was performed, and she is awaiting a full discussion of the results. Regarding health maintenance, her mammogram this year was normal. She reports being in menopause and has experienced symptoms such as bone soreness. She currently takes 50 mcg of vitamin D daily. She has not had a recent colonoscopy. The patient reports being very active but has not been walking for the last eight months due to heavy periods, which have recently subsided. She has gained some weight around her belly as a result of decreased activity. She denies any history of smoking. - Mammogram: Completed this year with no rmal results. - Vaccinations: Declines flu shot and te tanus vaccine. - Colon Cancer Screening: Discussed at-h ome stool test as an alternative to colonoscopy, which the patient is considering for the future. - Cardiovascular Risk: [place] risk s core for a heart attack or stroke in the next 10 years is low at 4.9%. [facility] Medical History HTN (hypertension) Surgical History No pertinent past surgical history Family History Father Renal failure CVD (cardiovascular disease) Mother Alzheimers disease Social History Housing: House Alcohol intake: never Patient Tobacco Use Status: Never used Tobacco Tobacco use type: Cigarette e-Cigarette/Vaping Use: Never Used Second Hand Smoke Exposure: No service: No Current occupational status: unemployed Cognitive needs: No Hearing needs: No Vision needs: No Questionnaire PHQ-9 Over the last 2 weeks, how often have you been bothered by any of the following problems? 1. Little interest or pleasure in doing things: not at all 2. Feeling down, depressed, or hopeless: not at all 3. Trouble falling or staying asleep, or sleeping too much: several days 4. Feeling tired or having little energy: several days 5. Poor appetite or overeating: not at all 6. Feeling bad about yourself - or that you are a failure or have let yourself or your family down: not at all 7. Trouble concentrating on things, such as reading the newspaper or watching television: not at all 8. Moving or speaking so slowly that other people could have noticed. Or the opposite - being so fidgety or restless that you have been moving around a lot more than usual: not at all 9. Thoughts that you would be better off or of hurting yourself in some way: not at all Total score: 2 Depression Screening Interpretation: Negative Depression Screening Done: Yes 33150 - PHQ-9 Billing: Yes Source: Developed by Drs. Florian Ocampo, Selina Regalado, Angel Crabtree and colleagues, with an educational riley from [employer]. Thrive Questionnaire Date Thrive assessed: 10/21/24 I am a: Parent/Caregiver What is your living situation today?: I have a steady place to live Within the past 12 months, did the food you bought not last and you didn't have the money to get more?: I choose not to answer this question Within the past 12 months, did you worry whether your food would run out before you got money to buy more?: I choose not to answer this question Do you have trouble paying for medicines?: I choose not to answer this question Do you have trouble getting transportation to medical appointments?: No Do you have trouble paying your heating and electricity bill?: I choose not to answer this question Do you have trouble taking care of your child, family member or friend?: No Do you have trouble with day-to-day activities such as bathing, preparing meals, shopping, managing finances, etc.?: No Are you currently unemployed and looking for a job?: I choose not to answer this question Are you interested in more education?: I choose not to answer this question Please select the resources that you would like help with: None Currently or been in a relationship where the following occur: No concerns reported THRIVE Score: 0 AUDIT C Alcohol Use Questionnaire (AUDIT-C) 1. How often do you have a drink containing alcohol?: Never Total Score: 0 Score Reviewed/Action Taken: No CLINT-7 AMB Questionnaire CLINT-7 Date CLINT - 7 assessed: 10/21/24 Source: Developed by Drs. Florian Ocampo, Selina Regalado, Angel Crabtree and colleagues, with an educational riley from [employer]. Review of Systems Const All systems reviewed & are unremarkable except as noted in HPI and below Card Denies chest pain at rest, Denies chest pain with activity, Denies edema, Denies irregular heart rhythm, Denies claudication, Denies dyspnea, Denies dyspnea on exertion, Denies orthopnea, Denies paroxysmal nocturnal dyspnea and Denies slow heart rate Resp Denies cough, Denies dyspnea and Denies dyspnea on exertion Physical exam (Primary Care) Vital Signs: Last Vital Signs Pulse 102 H 01/20/25 10:29 BP 152/78 H 01/20/25 10:29 Pulse Ox 98 01/20/25 10:29 Oxygen Delivery Method Room Air 01/20/25 10:29 BMI result Body Mass Index 28.2 Tobacco/Smoking Status: Tobacco use Status Tobacco use date assessed 12/21/24 01/20/25 10:30 Patient Tobacco Use Status Never used Tobacco 01/20/25 10:30 Tobacco use type Cigarette 01/20/25 10:30 e-Cigarette/Vaping Use Never Used 01/20/25 10:30 PHQ-9: PHQ-9 Score PHQ-9: Total score 2 01/20/25 10:45 Depression Screening Interpretation: Negative Thrive Assessment: Date of Thrive Assessment Date Thrive assessed 10/21/24 01/20/25 10:30 Currently or been in a relationship where the following occur: No concerns reported [facility] Head: Yes normal to inspection, Yes normocephalic and Yes atraumatic Ears: external ears normal Eyes General: appearance normal, both eyes and all related structures Eyelids: Yes eyelids normal Conjunctivae: conjunctivae normal Neck Neck: Yes normal visual inspection and Yes supple Resp Effort & Inspection: normal respiratory effort Auscultation: clear to auscultation bilaterally Cardio Jugular venous distension: no JVD Rate: regular rate Rhythm: regular rhythm Heart sounds: S1 normal heart sound present and S2 normal heart sound present GI Inspection: Yes normal to inspection Palpation (GI): Soft to palpation and nontender Auscultation: normal bowel sounds Skin General skin exam: no rashes or lesions noted Neuro General: no focal motor deficits Extrem General: Yes full ROM Psych Appearance: grossly normal Coding Level of Care Code Est Pt Prev Care 40-64y(80317) Diagnoses Physical exam Z00.00 Additional Codes PHQ-9 - 95299 - PHQ-9 Billing: Yes ([id number]) Time Spent (min) 31 Assessment & Plan Assessment & Plan (1) Physical exam: Code(s): Z00.00 - Encounter for general adult medical examination without abnormal findings Category: Medical Plan Plan 1. Physical exam Repeat in a year. Her mammogram for this year was normal. The patient declined the flu and tetanus vaccines. The option of an at-home stool test for colon cancer screening was discussed as an alternative to a colonoscopy, and she will consider it for the future. 2. Hypertension And Right Renal Artery Stenosis The patient is being followed by a apricot washer for hypertension. A recent renal ultrasound revealed a slightly narrow right renal artery, indicative of renal artery stenosis, which is a potential cause of her high blood pressure. The patient will undergo a 24-hour ambulatory blood pressure monitoring test and will follow up with her apricot washer to discuss all results. The apricot washer will determine the plan, which may include discontinuing her diuretic (hydrochlorothiazide) or potentially placing a stent to correct the stenosis. 2. Elevated Ferritin The patient's hemoglobin is 14, and her iron is too high. She has been taking ferrous sulfate 325 mg daily. It is recommended to reduce the ferrous sulfate intake to once a week. Plan to repeat iron levels in four months to monitor. 3. Hypercholesterolemia The patient's labs show elevated cholesterol. However, her 10-year [place] risk score for a heart attack or stroke is low at 4.9%. As the risk is below 6%, medication is not indicated at this time. Continued lifestyle management, including increasing physical activity, is encouraged. Orders: Orders Complete Blood Count Auto Diff 4 Months D64.9 - Anemia, unspecified IRON PROFILE 4 Months D64.9 - Anemia, unspecified Vitamin D 25-OH Total 4 Months E55.9 - Vitamin D deficiency, unspecified Comprehensive [place]. Panel Fast 4 Months I10 - Essential (primary) hypertension
[2025-01-20 10:29] VITALS: BP 152/78; PULSE 102; O2SAT 98; BMI 28.2
== END 2025-01-20 11:05 | disposition home or self-care (01) ==
LOC: HO.HMCH 10:14
PROVIDERS: PCP Internal Medicine; Visit Provider Internal Medicine
DX: Z00.00 Encounter for general adult medical examination without abnormal findings (principal)

== ENCOUNTER → 2025-01-20 10:13 | Outpatient (BNVA) | payer OTHER, SELFPAY | PROVIDERS: PCP Internal Medicine; Visit Provider Internal Medicine | DX: Z00.00 Encounter for general adult medical examination without abnormal findings (principal); I10 Essential (primary) hypertension; D64.9 Anemia, unspecified; E55.9 Vitamin D deficiency, unspecified; Z13.31 Encounter for screening for depression | CPT/HCPCS: 96127; 99396 ==

== ENCOUNTER 2025-01-28 10:10 | Outpatient (AMB) | payer OTHER, SELFPAY ==
--- NOTE | 2025-01-28 10:14 | HO.NEPHOV_ITS ---
Vital Signs 01/28/25 10:18 Height 5 ft 1 in Weight 150 lb BMI 28.3 BP 130/70 Blood Pressure Location Rt brachial Position Sitting Pulse 111 H Pulse Source Pulse Oximeter Pulse Oximetry (%) 99 Oxygen Delivery Method Room Air Intake Visit Reasons: 1 mo f/u w/ labs, US Accompanied by: Self / Same As Patient Allergies No Known Allergies Allergy (Verified 01/28/25 10:17) HPI Comments Details: I had the pleasure of seeing Jared in follow up for hypertension. She is currently retired. In the past she had anterolateral T-wave inversions on EKG which had been persistent without any dynamic changes. She had seen a chief hospital administrator and had undergone echocardiogram which was normal. She is on h ydrochlorothiazide by him which was subsequently discontinued but to be re- initiated again. She was attributing her lability in blood pressure due to menopausal symptoms. She has normal diet and is currently active. She does not take any excessive nonsteroidal anti-inflammatories. Her renal functions have been normal. She has no coronary artery disease, carotid stenosis, congestive heart failure, CVA, PAD or YAEL. Her serum potassium has been on the low-normal side on hydrochlorothiazide. She has not taken any other antihypertensive medications. She monitors her blood pressure at home closely. She feels well. [facility] Medical History HTN (hypertension) Surgical History No pertinent past surgical history Family History Father Renal failure CVD (cardiovascular disease) Mother Alzheimers disease Social History Housing: House Alcohol intake: never Patient Tobacco Use Status: Never used Tobacco Tobacco use type: Cigarette e-Cigarette/Vaping Use: Never Used Second Hand Smoke Exposure: No service: No Current occupational status: unemployed Cognitive needs: No Hearing needs: No Vision needs: No Review of Systems Const All systems reviewed & are unremarkable except as noted in HPI and below Physical Exam Vital Signs: Last Vital Signs Pulse 111 H 01/28/25 10:18 BP 130/70 01/28/25 10:18 Pulse Ox 99 01/28/25 10:18 Oxygen Delivery Method Room Air 01/28/25 10:18 BMI result Body Mass Index 28.3 Const General: comfortable and no acute distress Orientation/consciousness: patient oriented x3 HEENT Head: Yes normocephalic Mouth: Normal oral and palatal mucosa present Eyes EOM: EOMs intact bilaterally Neck Neck: Yes supple Resp Auscultation: clear to auscultation bilaterally Cardio Jugular venous distension: no JVD Rate: regular rate GI Palpation (GI): Soft to palpation Auscultation: normal bowel sounds General: Yes no CVA tenderness Back/Spine/Pelvis Back: no CVA tenderness Skin General skin exam: no rashes or lesions noted Neuro General: patient oriented x3 and moves all extremities Extrem General: Yes no pedal edema Results Reviewed Nephrology Results: Hgb, (12.0-16.0) 14.0 g/dl 01/07/25 WBC, (4.8-10.8) 6.3 X10*3/uL 01/07/25 Plt Count, (160-400) 289 X10*3/uL 01/07/25 Urine Creatinine 83.96 mg/dL 01/07/25 Protein/Creatinin Ratio, (<0.2) 0.10 01/07/25 Renal US 01/07/25 Assessment & Plan Assessment & Plan (1) HTN (hypertension): Code(s): I10 - Essential (primary) hypertension Category: Medical Qualifiers: Hypertension type: unspecified Qualified Code(s): I10 - Essential (primary) hypertension Plan Jared has hypertension. She is currently on hydrochlorothiazide which I D/Patrick. Her 24 hour ambulatory blood pressure monitor was reviewed with patient today. Her renal imaging show right YAEL. Other W/U was negative. She was encouraged to maintain good activity level and consume a low-sodium in the diet. Her renal functions are normal. I started her on Spironolactone 12.5 mg today( likely will need more). She needs better cholesterol profile( Her dad was on HD). There is no need for angiogram or stenting now. All these have been discussed in detail and I had the opportunity to answer all questions. Follow- up appointment given. Orders: Orders Electrolytes 6 Weeks I10 - Essential (primary) hypertension Blood Urea Nitrogen 6 Weeks I10 - Essential (primary) hypertension Creatinine 6 Weeks I10 - Essential (primary) hypertension Medications: New spironolactone 12.5 mg (1/2 x 25 mg) PO DAILY 45 tabs 3RF 90 days Discontinued hydrochlorothiazide Discontinued Reason: Doctor's Order 12.5 mg PO DAILY 90 tabs 3RF I10 - Essential (primary) hypertension Coding Level of Care Code Est Pt Level 4 (83741) 61953 ABPM Reading Diagnoses Hypertension, unspecified type I10 Hypertension type: unspecified
[2025-01-28 10:18] VITALS: BP 130/70; PULSE 111; O2SAT 99; BMI 28.3
== END 2025-01-28 10:51 | disposition home or self-care (01) ==
LOC: HO.HKA 10:12
PROVIDERS: PCP Internal Medicine; Visit Provider Internal Medicine Nephrology
DX: I10 Essential (primary) hypertension (principal)
CPT/HCPCS: 93790; 99214

== ENCOUNTER → 2025-01-28 10:10 | Outpatient (BNVA) | payer OTHER, SELFPAY | PROVIDERS: PCP Internal Medicine; Visit Provider Internal Medicine Nephrology | DX: I10 Essential (primary) hypertension (principal); Z79.899 Other long term (current) drug therapy | CPT/HCPCS: 93786; 93788; 99212 ==